=== PATIENT | female | born 2000 | race Caucasian/White ===

== ENCOUNTER 2022-07-14 07:55 | Emergency (ER) | payer OTHER, SELFPAY ==
--- NOTE | ~2022-07-14 | US_ITS ---
EXAMINATION: US OB <= 14 weeks fetus DATE: 07/14/2022 09:22 INDICATION: Pelvic pain. TECHNIQUE: Real-time transabdominal and transvaginal pelvic ultrasound was performed. COMPARISON: None. FINDINGS: TRANSABDOMINAL ULTRASOUND: The uterus measures 5.6 x 4.0 x 4.8 cm. TRANSVAGINAL ULTRASOUND: There is an intrauterine gestational sac with mean diameter of 7 mm, which c orrelates with an estimated gestational age of 5 weeks and 3 days +/- 3 days. A yolk sac is identifie d. No pole is visible. The right ovary measures 3.1 x 2.3 x 2.2 cm. The left ovary measures 2.2 x 1.5 x 2.5 cm. There is normal vascular flow in the ovaries. There is no free fluid in the pelvis. IMPRESSION: 1. Single intrauterine gestation with estimated date of delivery of 03/13/2023. Reviewed, dictated and finalized at location A.
[2022-07-14 07:58] VITALS: BP 127/87; PULSE 90; RESP 17; TEMP 36.3; O2SAT 98
[2022-07-14 08:11] VITALS: TEMP 36.6
--- NOTE | 2022-07-14 08:19 | ED.ABDPAIN ---
HPI - Abdominal Pain General Chief Complaint: Abdominal Pain Stated Complaint: abd pain, six weeks Time Seen by Provider: 07/14/22 08:19 Source: patient Mode of arrival: ambulatory Limitations: no limitations History of Present Illness HPI narrative: 22 years old white female presents with bilateral lower abdominal pain slight vaginal spotting a started last night. Patient found out that she is 2 days ago, history of palpitation and depression, does not smoke or drink or uses drugs. Patient is 2, para 0 1 Related Data Home Medications Medication Instructions Recorded Confirmed sertraline 25 mg tablet (Zoloft) mg 07/14/22 Allergies Allergy/AdvReac Type Severity Reaction Status Date / Time hydroxyzine AdvReac Anxiety Verified 07/14/22 08:13 methylphenidate AdvReac Other Verified 07/14/22 08:13 [From [employer]] Review of Systems Review of Systems: All systems reviewed & are unremarkable except as noted in HPI and below Exam Narrative: General appearance: Well-developed, well-nourished Skin: Normal color Head: Normocephalic, nontraumatic Eyes: Clear conjunctiva ENT: Oropharynx normal, ears normal, nose normal Neck: Supple, nontender Chest and respiratory: Airway patent, no respiratory distress, no accessory muscle use Heart: Regular rate/rhythm Abdomen: Soft, mild lower abdominal tenderness, no guarding or rebound. No organomegaly, quiet bowel sounds Vascular: Normal peripheral pulses, normal capillary refill. Musculoskeletal: Normal range of motion, nontender back Neurologic: Alert and oriented ?3, [employer] DEVELOPER is normal as tested, no gross motor deficit : Speculum Exam - Vagina: normal appearance of the vagina and vaginal bleeding (No vaginal bleeding) Speculum Exam - Cervix: normal appearance of the cervix and Cervical os closed Bimanual Exam- Adnexa, other: no masses and No adnexal tenderness Course Course Emergency Course: Threatened is my concern Vital Signs Vital signs: Vital Signs Temperature 36.3 C L 07/14/22 07:58 Pulse Rate 90 07/14/22 07:58 Respiratory Rate 17 07/14/22 07:58 Blood Pressure 127/87 07/14/22 07:58 Pulse Oximetry 98 07/14/22 07:58 Oxygen Delivery Room Air 07/14/22 07:58 Temperature 36.6 C 07/14/22 08:27 Pulse Rate 92 07/14/22 08:27 Respiratory Rate 18 07/14/22 08:27 Blood Pressure 115/62 07/14/22 08:27 Pulse Oximetry 100 07/14/22 08:27 Oxygen Delivery Room Air 07/14/22 07:58 MDM - Abdominal Pain Lab Data Result diagrams: 07/14/22 08:19 07/14/22 08:19 Labs: Lab Results 07/14/22 07/14/22 07/14/22 Range/Units 08:19 08:19 08:19 WBC 11.9 H (4.5-10.0) K/mm3 RBC 4.85 (4.2-5.4) M/mm3 Hgb 13.6 (12.0-15.0) g/dL Hct 40.6 (37.0-47.0) % MCV 83.7 (80-100) fl MCH 28.0 (26-34) pg MCHC 33.5 (32-36) g/dl RDW 13.2 (11.5-14.5) % Plt Count 296 (150-375) k/mm3 MPV 10.9 H (7.4-10.4) fl Immature Gran % (Auto) 0.7 H (0-0.5) % Neut % (Auto) 71.6 (45.5-73.1) % Lymph % (Auto) 18.1 L (18.3-44.2) % [place] % (Auto) 7.1 (2.6-8.5) % Eos % (Auto) 2.1 (0-4.4) % Baso % (Auto) 0.4 (0.2-1.2) % Lymph # (Auto) 2.15 (0.9-3.2) K/mm3 [place] # (Auto) 0.8 H (0.1-0.6) K/mm3 Eos # (Auto) 0.3 (0-0.3) K/mm3 Baso # (Auto) 0.1 (0.0-0.1) K/mm3 Abs Immat Gran (auto) 0.08 H (0.00-0.031) K/mm3 Absolute Neuts (auto) 8.5 H (1.3-6.7) K/mm3 Absolute Nucleated RBC 0.0 (0.0-0.012) K/mm3 Nucleated RBC % 0.0 (0.0-0.2) % Sodium 141 (137-145) mmol/L Potassium 3.8 (3.4-5.0) mmol/L Chloride 105 (98-107
[2022-07-14 08:27] VITALS: BP 115/62; PULSE 92; RESP 18; TEMP 36.6; O2SAT 100
[2022-07-14] MEDS: SODIUM CHLORIDE 0.9% IV 1,000 ML 999 ML IV CONT (08:36)
[2022-07-14] MEDS: MORPHINE SULFATE (*CRX) 4 MG/ML INJ IV PUSH (08:36)
[2022-07-14] MEDS: ONDANSETRON INJ 4 MG/2 ML VIAL IV PUSH (08:37)
[2022-07-14 08:38] LABS: Appearance Urine Clear (Clear); Bilirubin Urine Negative (Negative); Blood Urine Negative (Negative); Color Urine Yellow (Yellow); Glucose Urine UA Negative (Negative); Ketones Urine Negative (Negative); Leukocyte Esterase Ur Trace LEU/UL (Negative); Nitrate Urine Negative (Negative); Protein Urine Negative (Negative); Specific Grav Ur >= 1.030 (1.001-1.035); Urobilinogen Urine 0.2 mg/dL (<2.0); pH Urine 6.5 (5.0-9.0)
[2022-07-14 08:43] LABS: Basophils Absolute Auto 0.1 K/mm3 (0.0-0.1); Basophils Percent Auto 0.4 % (0.2-1.2); Eosinophils Absolute Auto 0.3 K/mm3 (0-0.3); Eosinophils Percent Auto 2.1 % (0-4.4); Hematocrit 40.6 % (37.0-47.0); Hemoglobin 13.6 g/dL (12.0-15.0); Immature Granulocyte Absolute 0.08 K/mm3 (0.00-0.031); Immature Granulocyte Percent A 0.7 % (0-0.5); Lymphocytes Absolute Auto 2.15 K/mm3 (0.9-3.2); Lymphocytes Percent Auto 18.1 % (18.3-44.2); Mean Corpuscular HGB Conc 33.5 g/dl (32-36); Mean Corpuscular Volume 83.7 fl (80-100); Mean Platelet Volume 10.9 fl (7.4-10.4); Monocytes Absolute Auto 0.8 K/mm3 (0.1-0.6); Monocytes Percent Auto 7.1 % (2.6-8.5); Neutrophils Absolute Auto 8.5 K/mm3 (1.3-6.7); Neutrophils Percent Auto 71.6 % (45.5-73.1); Platelet Count Result 296 k/mm3 (150-375); Red Blood Count 4.85 M/mm3 (4.2-5.4); Red Cell Distribution Width 13.2 % (11.5-14.5); White Blood Count 11.9 K/mm3 (4.5-10.0)
[2022-07-14 08:46] LABS: Mucus Urine Rare /lpf; RBC Urine 0-2 /hpf (0-2); Squamous Epithelial Cell Urine Few /hpf (Few); WBC Urine 0-3 /hpf
--- NOTE | 2022-07-14 08:54 | PC.NURSE ---
Pt to US
[2022-07-14 08:58] LABS: Alanine Aminotransferase 24 U/L (6-35); Albumin Level 4.4 g/dL (3.5-5.1); Alkaline Phosphatase 67 U/L (38-126); Anion Gap 10 mmol/L (8-16); Aspartate Amino Transferase 24 U/L (14-36); Bilirubin,Total 0.2 mg/dL (0.2-1.3); Blood Urea Nitrogen 9 mg/dL (7-17); Calcium 8.9 mg/dL (8.4-10.2); Carbon Dioxide 26 mmol/L (22-30); Chloride 105 mmol/L (98-107); Estimated CRCL calculation 135 ml/min; Estimated Glomerular Filt Rate > 60; Glucose 73 mg/dL (65-110); Lipase 58 U/L (23-300); Potassium 3.8 mmol/L (3.4-5.0); Sodium 141 mmol/L (137-145)
[2022-07-14 09:00] LABS: Add Urine Microscopic? YES
[2022-07-14 11:12] VITALS: BP 112/60; PULSE 93; RESP 18; O2SAT 100
== END 2022-07-14 11:14 | disposition home or self-care (01) ==
PROVIDERS: Emergency Provider Emergency Medicine
DX: O20.0 Threatened abortion (principal); Z3A.01 Less than 8 weeks gestation of pregnancy
CPT/HCPCS: 36415; 76801; 80053; 81001; 81025; 83690; 84702; 85025; 85461; 96361; 96374; 96375; 99284; J2270; J2405; J7030

== ENCOUNTER 2022-07-15 05:46 | Emergency (ER) | payer OTHER, SELFPAY ==
[2022-07-15 05:50] VITALS: BP 131/63; PULSE 95; RESP 17; TEMP 36.2; O2SAT 100
[2022-07-15 06:30] LABS: Appearance Urine Clear (Clear); Bilirubin Urine Negative (Negative); Blood Urine Negative (Negative); Color Urine Yellow (Yellow); Glucose Urine UA Negative (Negative); Ketones Urine Negative (Negative); Leukocyte Esterase Ur 1+ LEU/UL (Negative); Nitrate Urine Negative (Negative); Protein Urine Negative (Negative); Urobilinogen Urine 0.2 mg/dL (<2.0); pH Urine 6.5 (5.0-9.0)
[2022-07-15 06:35] LABS: Mucus Urine Rare /lpf; RBC Urine 0-2 /hpf (0-2); Squamous Epithelial Cell Urine Occasional /hpf (Few); WBC Urine 0-3 /hpf
[2022-07-15 06:37] LABS: Add Urine Microscopic? YES
--- NOTE | 2022-07-15 08:06 | ED.GENADULT ---
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 6weeks preg Time Seen by Provider: 07/15/22 06:03 History of Present Illness HPI narrative: Patient is a 22-year-old female who presents ER with vaginal discharge. Patient was evaluated in the ER yesterday for threatened AB. Ultrasound showed appropriate IUP. Patient sees Dr. Ellis at [facility]. Denies any vaginal bleeding. Still having some abdominal cramping. She noticed some gelatinous discharge from her vagina today and thought she should be evaluated. Patient did undergo transvaginal ultrasound and pelvic exam both which had lubricating jelly. Her discharge paperwork had said to return if she had abnormal discharge. Related Data Home Medications Medication Instructions Recorded Confirmed sertraline 25 mg tablet (Zoloft) mg 07/14/22 Allergies Allergy/AdvReac Type Severity Reaction Status Date / Time hydroxyzine AdvReac Anxiety Verified 07/14/22 08:13 methylphenidate AdvReac Other Verified 07/14/22 08:13 [From [employer]] Review of Systems Review of Systems: All systems reviewed & are unremarkable except as noted in HPI and below Constitutional: Constitutional: Denies chills and Denies fever(s) Gastrointestinal: Gastrointestinal: Denies abdominal pain, Denies nausea and Denies vomiting Genitourinary: Genitourinary: Denies abnormal vaginal bleeding, Denies nocturia and Reports vaginal discharge Comments: Pelvic cramping PMFSH Past Medical History Medical History (Updated 07/15/22 @ 08:11 by Odilon Connell MD) Healthy female adult Surgical History Surgical History (Updated 07/15/22 @ 08:08 by Odilon Connell MD) No history of previous surgery Social History Social History (Updated 07/15/22 @ 08:08 by Odilon Connell MD) Smoking status: Never smoker Exam Narrative: GENERAL: Well-appearing, well-nourished, and in no acute distress. HEAD: Normocephalic, atraumatic. CHEST: Clear to auscultation. No respiratory distress. HEART: Regular rate and rhythm. Normal peripheral pulses. ABDOMEN: Soft, nontender, nondistended. Pelvic: Normal external genitalia. Speculum exam with scant discharge, no bleeding, normal-appearing cervix is nontender. EXTREMITIES: Normal range of motion. No edema. SKIN: Warm, dry, no rash. NEURO: Alert and oriented x3. PSYCH: Normal mood and affect. Course Course Emergency Course: Pelvic swabs obtained. Unremarkable exam. Discharge likely related to lubricating jelly used yesterday. Will not prescribe any metronidazole at this time. Recommend follow-up with energy auditor in follow-up of vaginal cultures. Vital Signs Vital signs: Vital Signs Temperature 97.1 F L 07/15/22 05:50 Pulse Rate 95 07/15/22 05:50 Respiratory Rate 17 07/15/22 05:50 Blood Pressure 131/63 07/15/22 05:50 Pulse Oximetry 100 07/15/22 05:50 Oxygen Delivery Room Air 07/15/22 05:50 Temperature 97.1 F L 07/15/22 05:50 Pulse Rate 95 07/15/22 05:50 Respiratory Rate 17 07/15/22 05:50 Blood Pressure 131/63 07/15/22 05:50 Pulse Oximetry 100 07/15/22 05:50 Oxygen Delivery Room Air 07/15/22 05:50 Medical Decision Making Vital Signs Vital Signs: Vital Signs Temperature 97.1 F L 07/15/22 05:50 Pulse Rate 95 07/15/22 05:50 Respiratory Rate 17 07/15/22 05:50 Blood Pressure 131/63 07/15/22 05:50 Pulse Oximetry 100 07/15/22 05:50 Oxygen Delivery Room Air 07/15/22 05:50 Temperature 97.1 F L 07/15/22 05:50 Pulse Rate 95 07/15/22 05:50 Respiratory Rate 17 07/15/22 05:50 Blood Pressure 131/63 07/15/22 05:50 Pulse Oximetry 100 07/15/22 05:50 Oxygen Delivery Room Air 07/15/22 05:50 Lab Data Labs: Lab Results 07/15/22 Range/Units 06:21 Urine Color Yellow (Yellow) Urine Appearance Clear (Clear) Urine pH 6.5 (5.0-9.0) Ur Specific [place] 1.010 (1.001-1.035) Uri
[2022-07-15 08:20] VITALS: BP 126/87; PULSE 64; RESP 16; O2SAT 98
== END 2022-07-15 08:21 | disposition home or self-care (01) ==
PROVIDERS: Emergency Medicine; Emergency Provider Emergency Medicine; PCP Nurse Practitioner Family
DX: O99.891 Other specified diseases and conditions complicating pregnancy (principal); N89.8 Other specified noninflammatory disorders of vagina; Z3A.01 Less than 8 weeks gestation of pregnancy
CPT/HCPCS: 81001; 87070; 87491; 87591; 87808; 99284

== ENCOUNTER 2022-08-24 08:55 | Emergency (ER) | payer OTHER, MEDICAID, SELFPAY ==
[2022-08-24] VITALS (8 sets, daily range): BP systolic 106–115; BP diastolic 53–73; PULSE 82–100; RESP 16–20; TEMP 36.4; O2SAT 98–100
--- NOTE | ~2022-08-24 | CT_ITS ---
EXAMINATION: CT brain wo con DATE: 08/24/2022 09:54 INDICATION: Struck head 4 days ago. 11 weeks . TECHNIQUE: Computed tomography (CT) of the head was performed without intravenous contrast. The mA wa s adjusted according to patient size. Iterative reconstruction technique was employed. Exam dose: 60 5.33 mGy-cm total exam DLP. COMPARISON: None FINDINGS: No intracranial mass lesion or hemorrhage, midline shift or mass effect or cerebrovascular accident. Normal ventricular size. Normal covarrubias-white matter differentiation. No subdural or epidural hematoma is detected. No fracture or bone destruction of the cranial vault. Mastoid air cells and included paranasal sinuses are unremarkable. IMPRESSION: Negative Reviewed, dictated and finalized at [facility]. Reviewed, dictated and finalized at location A. ECTOR ALIGNING IMPRESSION: Negative
--- NOTE | 2022-08-24 09:14 | ECG_ITS ---
Measurements Intervals [place] Rate: 86 P: 27 SC: 137 QRS: 33 QRSD: 80 T: -10 QT: 380 QTc: 457 Interpretive Statements SINUS RHYTHM NONSPECIFIC ST & T-WAVE ABNORMALITY- ANTEROLAT/INF LEADS BASELINE ARTIFACT- I, II, III, AVR, AVL, AVF, V1-V6 BORDERLINE ECG NO PREVIOUS ECG AVAILABLE FOR COMPARISON Electronically Signed On 08-24-2022 9:34:35 LEATHER STRETCHER by Quang Lo D.O.
[2022-08-24 09:28] LABS: Basophils Percent Auto 0.3 % (0.2-1.2); Eosinophils Absolute Auto 0.2 K/mm3 (0-0.3); Eosinophils Percent Auto 1.1 % (0-4.4); Hematocrit 36.6 % (37.0-47.0); Hemoglobin 12.7 g/dL (12.0-15.0); Immature Granulocyte Percent A 0.7 % (0-0.5); Lymphocytes Absolute Auto 2.21 K/mm3 (0.9-3.2); Lymphocytes Percent Auto 15.7 % (18.3-44.2); Mean Corpuscular HGB Conc 34.7 g/dl (32-36); Mean Corpuscular Hemoglobin 28.4 pg (26-34); Mean Corpuscular Volume 81.9 fl (80-100); Mean Platelet Volume 10.6 fl (7.4-10.4); Monocytes Absolute Auto 0.8 K/mm3 (0.1-0.6); Monocytes Percent Auto 5.5 % (2.6-8.5); Neutrophils Absolute Auto 10.8 K/mm3 (1.3-6.7); Neutrophils Percent Auto 76.7 % (45.5-73.1); Platelet Count Result 265 k/mm3 (150-375); Red Blood Count 4.47 M/mm3 (4.2-5.4); Red Cell Distribution Width 13.2 % (11.5-14.5); White Blood Count 14.1 K/mm3 (4.5-10.0)
[2022-08-24] MEDS: SODIUM CHLORIDE 0.9% IV 1,000 ML 999 ML IV CONT (09:28)
--- NOTE | 2022-08-24 09:28 | ED.DIZZY ---
HPI - Dizziness General Chief Complaint: Dizziness Stated Complaint: dizzy, head injury 4 days ago Time Seen by Provider: 08/24/22 09:05 Source: RN notes reviewed History of Present Illness HPI Narrative: Patient presents emergency department from home for dizziness. Patient states she been having intermittent dizziness for the past 4 days. Patient states that symptoms began after she struck her head on a pallet at work she states she had no loss of consciousness at that time she denies having any headache at this time she states that the dizziness feels like the room spinning sensation she denies any fevers or chills numbness or weakness of extremities vision changes chest pain shortness of breath vomiting or any other symptoms. Patient states she is approximately 11 weeks she is followed by Dr. Ellis she has had an ultrasound showing intrauterine . She denies any vaginal bleeding or discharge Related Data Home Medications Medication Instructions Recorded Confirmed sertraline 25 mg tablet (Zoloft) mg 07/14/22 Allergies Allergy/AdvReac Type Severity Reaction Status Date / Time hydroxyzine AdvReac Anxiety Verified 07/14/22 08:13 methylphenidate AdvReac Other Verified 07/14/22 08:13 [From [employer]] Review of Systems Review of Systems: Gen.: Denies fevers or chills Eyes: Denies eye pain or visual change ENT: Denies congestion Respiratory: Denies shortness of breath or cough CV: Denies chest pain or palpitations GI: Denies abdominal pain nausea, emesis or diarrhea Musculoskeletal: Denies back pain or muscle pain Neuro: See HPI Skin: Denies rash Except as documented, all other systems reviewed and negative [facility] Past Medical History Medical History Healthy female adult Surgical History Surgical History (Updated 07/15/22 @ 08:08 by Odilon Connell MD) No history of previous surgery Social History Social History Smoking status: Never smoker Exam Narrative: APPEARANCE: No acute distress, nontoxic, resting in bed HEENT: Normocephalic, atraumatic, OMM, TMs clear bilaterally EYES: PERRL, EOMI NECK: Supple, nontender, full range of motion without pain, no meningismus RESPIRATORY: No respiratory distress, clear to auscultation bilaterally with no rhonchi wheezing or rales CARDIOVASCULAR: RRR s murmur ABDOMINAL: Soft, nontender, nondistended MUSCULOSKELETAL: Moves all extremities. No clubbing, cyanosis or edema. NEURO: A and O ?3, following commands, speech normal, no facial,muscle strength 5 out of 5 bilateral upper and lower extremities SKIN:: Warm, dry. Normal Color PSYCHIATRIC: Normal affect/mood Course Course Emergency Course: Patient states her dizziness is improved at this time Discussed with patient results of workup and diagnosis. Discussed need for follow-up with primary care, proper use of medication, and reasons to return to the emergency department. Patient understands and agrees to current treatment plan Vital Signs Vital signs: Vital Signs Pulse Rate 91 08/24/22 09:11 Respiratory Rate 20 08/24/22 09:11 Blood Pressure 112/64 08/24/22 09:11 Pulse Oximetry 100 08/24/22 09:11 Temperature 97.6 F 08/24/22 09:12 Pulse Rate 82 08/24/22 09:42 Respiratory Rate 20 08/24/22 09:28 Blood Pressure 111/69 08/24/22 09:41 Pulse Oximetry 98 08/24/22 09:28 MDM - Dizziness Lab Data Result diagrams: 08/24/22 09:19 08/24/22 09:19 Labs: Lab Results 08/24/22 08/24/22 08/24/22 Range/Units 09:19 09:19 09:35 WBC 14.1 H (4.5-10.0) K/mm3 RBC 4.47 (4.2-5.4) M/mm3 Hgb 12.7 (12.0-15.0) g/dL Hct 36.6 L (37.0-47.0) % MCV 81.9 (80-100) fl MCH 28.4 (26-34) pg MCHC 34.7 (32-36) g/dl RDW 13.2 (11.5-14.5) % Plt Count 265 (150-375) k/mm3 MPV 10.6 H (7.4-10.4
[2022-08-24 09:41] LABS: Alanine Aminotransferase 20 U/L (6-35); Albumin Level 4.3 g/dL (3.5-5.1); Alkaline Phosphatase 64 U/L (38-126); Anion Gap 9 mmol/L (8-16); Aspartate Amino Transferase 22 U/L (14-36); Bilirubin,Total 0.3 mg/dL (0.2-1.3); Blood Urea Nitrogen 9 mg/dL (7-17); Calcium 8.9 mg/dL (8.4-10.2); Carbon Dioxide 23 mmol/L (22-30); Chloride 103 mmol/L (98-107); Estimated CRCL calculation 139 ml/min; Estimated Glomerular Filt Rate > 60; Glucose 87 mg/dL (65-110); Potassium 3.6 mmol/L (3.4-5.0); Sodium 135 mmol/L (137-145)
[2022-08-24 10:09] LABS: Appearance Urine Clear (Clear); Bilirubin Urine Negative (Negative); Blood Urine Negative (Negative); Color Urine Yellow (Yellow); Glucose Urine UA Negative (Negative); Ketones Urine 1+ mg/dL (Negative); Leukocyte Esterase Ur Negative LEU/UL (Negative); Nitrate Urine Negative (Negative); Protein Urine Negative (Negative); Specific Grav Ur >= 1.030 (1.001-1.035); Urobilinogen Urine 0.2 mg/dL (<2.0); pH Urine 5.5 (5.0-9.0)
[2022-08-24 10:27] LABS: Bacteria Urine Trace /hpf; RBC Urine 0-2 /hpf (0-2); Squamous Epithelial Cell Urine Occasional /hpf (Few); WBC Urine 0-3 /hpf
[2022-08-24 11:07] LABS: Add Urine Microscopic? YES
== END 2022-08-24 12:20 | disposition home or self-care (01) ==
PROVIDERS: Emergency Provider Emergency Medicine; PCP Nurse Practitioner Family
DX: O9A.211 Injury, poisoning and certain other consequences of external causes complicating pregnancy, first trimester (principal); R42 Dizziness and giddiness; S00.93XA Contusion of unspecified part of head, initial encounter; Z3A.11 11 weeks gestation of pregnancy; W22.8XXA Striking against or struck by other objects, initial encounter
CPT/HCPCS: 36415; 70450; 80053; 81001; 85025; 93005; 96360; 99284; J7030

== ENCOUNTER 2022-10-17 11:18 | Emergency (ER) | payer OTHER, MEDICAID, SELFPAY ==
--- NOTE | ~2022-10-17 | US_ITS ---
EXAMINATION: US OB follow up DATE: 10/17/2022 12:33 INDICATION: Vaginal bleeding in . TECHNIQUE: Real-time ultrasound of the pelvis was performed. COMPARISON: Ultrasound 07/14/2022 FINDINGS: There is a single living fetus in variable presentation. The placenta is posterior, 5.6 cm in the ce rvix. heart rate is 162 beats per minute (bpm). The amniotic fluid volume is subjectively alise l. The cervical length is 3.5 cm on transvaginal images, which is normal. The following biometric data were obtained: Biparietal diameter (BPD): 4.4 cm; head circumference (HC): 16.1 cm; abdominal circumference (AC): 14 .0 cm; femur length (FL): 3.0 cm. These measurements are concordant. Estimated weight is 282 g +/- 42 g, which correlates with the 60th percentile when 03/13/23 is u sed as estimated date of delivery. As single measurements, these parameters are each equal to the following estimated gestational ages: BPD: 19 weeks 3 days. HC: 18 weeks 6 days. AC: 19 weeks 3 days. FL: 19 weeks 1 days. estimated gestational age based solely on measurements from this exam is 19 weeks 2 days +/- 1 weeks 2 days. IMPRESSION: 1. Single living fetus in variable presentation. 2. Estimated weight is 282 g +/- 42 g, which correlates with the 60th percentile when 03/13/23 is used as estimated date of delivery. This date was set by ultrasound on 07/14/2022. Reviewed, dictated and finalized at location A. BLOWER MECHANIC IMPRESSION: 1. Single living fetus in variable presentation. 2. Estimated weight is 282 g +/- 42 g, which correlates with the 60th pe rcentile when 03/13/23 is used as estimated date of delivery. This date was set by ultrasound on 07/14/2022.
[2022-10-17 11:24] VITALS: BP 123/79; PULSE 95; RESP 18; TEMP 36.6; O2SAT 98
[2022-10-17 11:27] VITALS: O2SAT 98
[2022-10-17 11:28] VITALS: BP 112/69; O2SAT 98
[2022-10-17 11:30] VITALS: O2SAT 98
--- NOTE | 2022-10-17 11:44 | ED.PREGNANCY ---
HPI - General Chief complaint: Vaginal Bleeding Stated complaint: VAG BLEED 19 WEEKS Time Seen by Provider: 10/17/22 11:27 Source: patient Mode of arrival: ambulatory Limitations: no limitations History of Present Illness HPI Narrative: This is a 22 year old , about 19 weeks that presents to the ER for vaginal bleeding today. Reports she was having bright red blood like a period earlier today. Reports the bleeding has slowed. Reports some mild left sided pelvic cramping/pain. Does report some vomiting, but that she is also recovering from the flu. Reports she is currently taking antibiotics for a UTI. Reports she has a normal ultrasound this and care, her OB is Dr. Ellis. She is scheduled for her anatomy scan next week. Denies fever, flank pain or dysuria. Related Data Home Medications Medication Instructions Recorded Confirmed sertraline 25 mg tablet (Zoloft) mg 07/14/22 nitrofurantoin 10/17/22 10/17/22 monohydrate/macrocrystals 100 mg capsule Allergies Allergy/AdvReac Type Severity Reaction Status Date / Time hydroxyzine AdvReac Anxiety Verified 10/17/22 11:22 methylphenidate AdvReac Other Verified 10/17/22 11:22 [From [employer]] Review of Systems Review of Systems: CONSTITUTIONAL: Denies fever GASTROINTESTINAL: Reports abdominal pain, nausea, vomiting GENITOURINARY: Denies dysuria or hematuria. All systems reviewed & are unremarkable except as noted in HPI and below PMFSH Past Medical History Medical History Healthy female adult Surgical History Surgical History (Updated 07/15/22 @ 08:08 by Odilon Connell MD) No history of previous surgery Social History Social History Smoking status: Never smoker Exam Narrative: GENERAL: Well-appearing, well-nourished, and in no acute distress. HEAD: Normocephalic, atraumatic. EYES: EOMI. CHEST: Clear to auscultation. No respiratory distress. No wheezes rales or rhonchi HEART: Regular rate and rhythm. No murmur heard. Normal peripheral pulses. ABDOMEN: Soft, nontender, nondistended, normal active bowel sounds. EXTREMITIES: Normal range of motion. No edema. SKIN: Warm, dry, no rash. NEURO: No focal deficits. Alert and oriented x3. PSYCH: Normal mood and affect PELVIC: Normal external genitalia. Normal appearing cervix, closed. No bleeding noted. Small amount of white cervical discharge Course Course Emergency Course: Patient and family updated on work-up. She has had no further bleeding while in the ED Consultations Consultation #1: Spoke with Dr. Hurley about patient and work-up who will follow-up in clinic Date: 10/17/22 Vital Signs Vital signs: Vital Signs Temperature 97.8 F 10/17/22 11:24 Pulse Rate 95 10/17/22 11:24 Respiratory Rate 18 10/17/22 11:24 Blood Pressure 123/79 10/17/22 11:24 Pulse Oximetry 98 10/17/22 11:24 Temperature 97.8 F 10/17/22 11:24 Pulse Rate 95 10/17/22 11:24 Respiratory Rate 18 10/17/22 11:24 Blood Pressure 112/69 10/17/22 11:28 Pulse Oximetry 98 10/17/22 11:30 MDM - OB/Uterine Contractions MDM Narrative Medical decision making narrative: Patient presents to the emergency department for vaginal bleeding noted this morning. She is afebrile and nontoxic-appearing. Her vitals are stable. I do not note any vaginal bleeding on exam. Her cervix is closed. She does report that she has had routine care. She has had a normal ultrasound and negative chlamydia, gonorrhea and trichomonas tests. CBC with mild leukocytosis to 11.9. Her hemoglobin is normal. Metabolic panel without concerning findings. UA without evidence of infection. Her blood type is B+. Obstetric ultrasound shows a single living fetus with FLORA 03-13-2023. No obvious explanation for her bleeding this morning. Patient was updated on wo
--- NOTE | 2022-10-17 12:03 | PC.NURSE ---
Patient to the ED stating she had vaginal bleeding this AM. No bleeding seen during pelvic exam. Patient complains of left flank pain and states she is being treated for a UTI currently.
--- NOTE | 2022-10-17 12:04 | PC.NURSE ---
heart tones found at around 150 BPM
[2022-10-17 12:05] LABS: Add Urine Microscopic? NO; Appearance Urine Clear (Clear); Basophils Percent Auto 0.3 % (0.2-1.2); Bilirubin Urine Negative (Negative); Blood Urine Negative (Negative); Color Urine Yellow (Yellow); Eosinophils Absolute Auto 0.2 K/mm3 (0-0.3); Eosinophils Percent Auto 1.4 % (0-4.4); Glucose Urine UA Negative (Negative); Hematocrit 35.9 % (37.0-47.0); Hemoglobin 12.3 g/dL (12.0-15.0); Immature Granulocyte Absolute 0.11 K/mm3 (0.00-0.031); Immature Granulocyte Percent A 0.9 % (0-0.5); Ketones Urine Negative (Negative); Leukocyte Esterase Ur Negative LEU/UL (Negative); Lymphocytes Absolute Auto 1.61 K/mm3 (0.9-3.2); Lymphocytes Percent Auto 13.5 % (18.3-44.2); Mean Corpuscular HGB Conc 34.3 g/dl (32-36); Mean Corpuscular Hemoglobin 29.6 pg (26-34); Mean Corpuscular Volume 86.5 fl (80-100); Mean Platelet Volume 10.3 fl (7.4-10.4); Monocytes Absolute Auto 0.9 K/mm3 (0.1-0.6); Monocytes Percent Auto 7.1 % (2.6-8.5); Neutrophils Absolute Auto 9.1 K/mm3 (1.3-6.7); Neutrophils Percent Auto 76.8 % (45.5-73.1); Nitrate Urine Negative (Negative); Platelet Count Result 293 k/mm3 (150-375); Protein Urine Negative (Negative); Red Blood Count 4.15 M/mm3 (4.2-5.4); Red Cell Distribution Width 13.6 % (11.5-14.5); White Blood Count 11.9 K/mm3 (4.5-10.0)
[2022-10-17 12:12] LABS: Bacteria Urine Trace /hpf; Mucus Urine Rare /lpf; Squamous Epithelial Cell Urine Occasional /hpf (Few); WBC Urine 0-3 /hpf
[2022-10-17 12:28] LABS: Alanine Aminotransferase 27 U/L (6-35); Albumin Level 3.8 g/dL (3.5-5.1); Alkaline Phosphatase 79 U/L (38-126); Anion Gap 6 mmol/L (8-16); Aspartate Amino Transferase 30 U/L (14-36); Bilirubin,Total 0.3 mg/dL (0.2-1.3); Blood Urea Nitrogen 4 mg/dL (7-17); Calcium 8.9 mg/dL (8.4-10.2); Carbon Dioxide 26 mmol/L (22-30); Chloride 103 mmol/L (98-107); Estimated CRCL calculation 141 ml/min; Estimated Glomerular Filt Rate > 60; Glucose 83 mg/dL (65-110); Sodium 135 mmol/L (137-145)
== END 2022-10-17 15:22 | disposition home or self-care (01) ==
PROVIDERS: Emergency Medicine; Emergency Provider Physician Assistant; PCP Nurse Practitioner Family
DX: O20.9 Hemorrhage in early pregnancy, unspecified (principal); Z3A.19 19 weeks gestation of pregnancy
CPT/HCPCS: 36415; 76816; 80053; 81003; 84702; 85025; 85461; 86850; 86900; 86901; 99284

== ENCOUNTER 2022-11-15 05:19 | Observation (INO) | payer OTHER, MEDICAID, SELFPAY ==
--- NOTE | ~2022-11-15 | US_ITS ---
EXAMINATION: US venous doppler [facility] DATE: 11/15/2022 09:18 INDICATION: Bilateral lower limb pain TECHNIQUE: Harmon scale images without and with compression and Doppler images of the bilateral lower e xtremity veins were obtained. COMPARISON: None FINDINGS: The right common femoral vein, profunda femoral vein, femoral vein, popliteal vein, peroneal trunk, p osterior tibial veins, and greater saphenous vein are patent. There is somewhat slow flow in the righ t lower extremity veins. The left common femoral vein, profunda femoral vein, femoral vein, popliteal vein, peroneal trunk, po sterior tibial veins, and greater saphenous vein are patent. IMPRESSION: 1. Patent bilateral lower extremity veins. No evidence of deep venous thrombosis. Somewhat slow flow in the right lower extremity veins. Reviewed, dictated and finalized at location L. OMS GUARD IMPRESSION: 1. Patent bilateral lower extremity veins. No evidence of deep venous thrombosi s. Somewhat slow flow in the right lower extremity veins.
[2022-11-15 05:48] VITALS: BP 124/68; PULSE 84
--- NOTE | 2022-11-15 05:50 | OBADM ---
This patient, Tory Corrales, admitted to the OB room OB Post 117 for observation. pt complains of some abdominal cramping last couple of hours here and there, but denies pain of frequent contractions. abdomen soft. pt also complains of swelling on legs and some pain on back of her legs. No edema noted, negative shay's sign. she complains soreness of calf as palpate. [place] pulse palpate equally. bilateral legs appears same size. pt states she has family hx DVT. monitoring applied. VS stable. Patient/family oriented to hospital policies and general routines including ID bracelet, bed and alarms, visiting hours, pain management, procedures, bathroom and other care routines, personal items, smoking policy, room service/diet, and visiting hours. Patient/Family are encouraged to report perceived risks to care and to ask questions if they do not understand what they are told or what they should do.
[2022-11-15 06:00] VITALS: BP 117/69; PULSE 78; TEMP 36.4
[2022-11-15 06:15] VITALS: BP 117/64; PULSE 72
[2022-11-15 06:15] LABS: Basophils Percent Auto 0.2 % (0.2-1.2); Eosinophils Absolute Auto 0.1 K/mm3 (0-0.3); Eosinophils Percent Auto 0.9 % (0-4.4); Hematocrit 33.4 % (37.0-47.0); Hemoglobin 11.4 g/dL (12.0-15.0); Immature Granulocyte Percent A 0.8 % (0-0.5); Lymphocytes Absolute Auto 1.36 K/mm3 (0.9-3.2); Lymphocytes Percent Auto 11.3 % (18.3-44.2); Mean Corpuscular HGB Conc 34.1 g/dl (32-36); Mean Corpuscular Hemoglobin 29.7 pg (26-34); Monocytes Absolute Auto 0.7 K/mm3 (0.1-0.6); Monocytes Percent Auto 5.9 % (2.6-8.5); Neutrophils Absolute Auto 9.7 K/mm3 (1.3-6.7); Neutrophils Percent Auto 80.9 % (45.5-73.1); Platelet Count Result 251 k/mm3 (150-375); Red Blood Count 3.84 M/mm3 (4.2-5.4); Red Cell Distribution Width 13.4 % (11.5-14.5)
[2022-11-15 06:16] LABS: Appearance Urine Clear (Clear); Bilirubin Urine Negative (Negative); Blood Urine Negative (Negative); Color Urine Yellow (Yellow); Glucose Urine UA Negative (Negative); Ketones Urine Negative (Negative); Leukocyte Esterase Ur Trace LEU/UL (Negative); Nitrate Urine Negative (Negative); Protein Urine Trace mg/dL (Negative); Urobilinogen Urine 0.2 mg/dL (<2.0)
[2022-11-15 06:26] LABS: Add Urine Microscopic? YES; Amorphous Sediment Urine Few; Bacteria Urine Trace /hpf; Mucus Urine Rare /lpf; Squamous Epithelial Cell Urine Moderate /hpf (Few)
[2022-11-15 06:30] VITALS: BP 119/73; PULSE 83; TEMP 36.4; BMI 37.8
[2022-11-15 06:31] LABS: Alanine Aminotransferase 14 U/L (6-35); Albumin Level 3.6 g/dL (3.5-5.1); Alkaline Phosphatase 69 U/L (38-126); Anion Gap 4 mmol/L (8-16); Aspartate Amino Transferase 15 U/L (14-36); Bilirubin,Total 0.3 mg/dL (0.2-1.3); Blood Urea Nitrogen 6 mg/dL (7-17); Calcium 8.6 mg/dL (8.4-10.2); Carbon Dioxide 24 mmol/L (22-30); Chloride 105 mmol/L (98-107); Estimated Glomerular Filt Rate > 60; Glucose 93 mg/dL (65-110); Potassium 3.7 mmol/L (3.4-5.0); Sodium 133 mmol/L (137-145)
[2022-11-15 06:48] LABS: Creatinine Urine 113.8 mg/dL; Total Protein Urine Random 17 mg/dL; Ur Ttl Prot Creatinine Ratio 0.15 mg/mg (0-0.20)
[2022-11-15 07:00] VITALS: BP 117/72; PULSE 77
--- NOTE | 2022-11-15 07:40 | PC.NURSE ---
Dr. Hurley informed of pt's c/o abdominal cramping and pain behind both knees radiating down to calves bilaterally. Pt states her legs swell at times; but no swelling or redness noted at present. Pt rating leg pain a 7 out of 10.
[2022-11-15 07:58] VITALS: BP 118/57; PULSE 77
--- NOTE | 2022-11-15 09:51 | PC.NURSE ---
Dr. Hurley informed of Venous doppler U/S report and that cramping has resolved. Orders for discharge received.
--- NOTE | 2022-12-05 11:58 | PM.OBTRLD ---
OB - Triage/Final Diagnosis Visit Information Comments/Additional reasons for admission: I have assessed the risk for this patient, Tory Corrales, and determined that she would benefit from observation care. Evaluation Laboratory results: Laboratory Tests 11/15/22 11/15/22 11/15/22 05:59 05:59 05:59 WBC 12.0 H RBC 3.84 L Hgb 11.4 L Hct 33.4 L MCV 87.0 MCH 29.7 MCHC 34.1 RDW 13.4 Plt Count 251 MPV 11.0 H Immature Gran % (Auto) 0.8 H Neut % (Auto) 80.9 H Lymph % (Auto) 11.3 L [place] % (Auto) 5.9 Eos % (Auto) 0.9 Baso % (Auto) 0.2 Lymph # (Auto) 1.36 [place] # (Auto) 0.7 H Eos # (Auto) 0.1 Baso # (Auto) 0.0 Abs Immat Gran (auto) 0.10 H Absolute Neuts (auto) 9.7 H Absolute Nucleated RBC 0.0 Nucleated RBC % 0.0 Sodium Potassium Chloride Carbon Dioxide Anion Gap BUN Creatinine Estim Creat Clear Calc Estimated GFR Glucose Uric Acid Calcium Total Bilirubin AST ALT Alkaline Phosphatase Total Protein Albumin Urine Color Yellow Urine Appearance Clear Urine pH 7.0 Ur Specific [place] 1.020 Urine Protein Trace Urine Glucose (UA) Negative Urine Ketones Negative Ur Blood (Man) Negative Urine Nitrate Negative Urine Bilirubin Negative Urine Urobilinogen 0.2 Leukocyte Esterase Rfl Trace H Urine RBC 3-5 H Urine WBC 4-6 H Ur Squamous Epith Cells Moderate H Amorphous Sediment Few H Urine Bacteria Trace Urine Mucus Rare U Random Total Protein 17 Urine Creatinine 113.8 Protein/Creat Ratio 2 0.15 11/15/22 05:59 WBC RBC Hgb Hct MCV MCH MCHC RDW Plt Count MPV Immature Gran % (Auto) Neut % (Auto) Lymph % (Auto) [place] % (Auto) Eos % (Auto) Baso % (Auto) Lymph # (Auto) [place] # (Auto) Eos # (Auto) Baso # (Auto) Abs Immat Gran (auto) Absolute Neuts (auto) Absolute Nucleated RBC Nucleated RBC % Sodium 133 L Potassium 3.7 Chloride 105 Carbon Dioxide 24 Anion Gap 4 L BUN 6 L Creatinine 0.50 L Estim Creat Clear Calc Not Reportable Estimated GFR > 60 Glucose 93 Uric Acid 3.0 Calcium 8.6 Total Bilirubin 0.3 AST 15 ALT 14 Alkaline Phosphatase 69 Total Protein 7.0 Albumin 3.6 Urine Color Urine Appearance Urine pH Ur Specific [place] Urine Protein Urine Glucose (UA) Urine Ketones Ur Blood (Man) Urine Nitrate Urine Bilirubin Urine Urobilinogen Leukocyte Esterase Rfl Urine RBC Urine WBC Ur Squamous Epith Cells Amorphous Sediment Urine Bacteria Urine Mucus U Random Total Protein Urine Creatinine Protein/Creat Ratio 2 Final Diagnosis (1) Uterine cramping: Code(s): N94.89 - Other specified conditions associated with female genital organs and menstrual cycle Status: Acute
== END 2022-11-15 10:06 | disposition home or self-care (01) ==
PROVIDERS: Admitting Provider Obstetrics & Gynecology; PCP Nurse Practitioner Family; Visit Provider Obstetrics & Gynecology
DX: O99.891 Other specified diseases and conditions complicating pregnancy (principal); N94.89 Other specified conditions associated with female genital organs and menstrual cycle; O26.892 Other specified pregnancy related conditions, second trimester; M79.662 Pain in left lower leg; M79.661 Pain in right lower leg; Z3A.23 23 weeks gestation of pregnancy
CPT/HCPCS: 36415; 80053; 81001; 82570; 84156; 84550; 85025; 93970; G0378; G0379

== ENCOUNTER 2022-12-28 11:17 | Outpatient (RCR) | payer OTHER, MEDICAID, SELFPAY ==
[2022-11-09 10:30] VITALS: BP 111/67; PULSE 73
[2022-12-28 11:54] VITALS: BP 119/75; PULSE 117
== END 2023-02-07 23:59 | disposition home or self-care (01) ==
LOC: ANHOBOP 11:17
PROVIDERS: PCP Nurse Practitioner Family; Visit Provider Obstetrics & Gynecology
DX: O36.8120 Decreased fetal movements, second trimester, not applicable or unspecified (principal); Z3A.22 22 weeks gestation of pregnancy; O36.8130 Decreased fetal movements, third trimester, not applicable or unspecified; Z3A.29 29 weeks gestation of pregnancy
CPT/HCPCS: 59025

== ENCOUNTER 2023-01-09 10:03 | Outpatient (CLI) | payer OTHER, MEDICAID, SELFPAY ==
[2023-01-09 10:24] VITALS: BP 126/70; PULSE 96
[2023-01-09 10:30] VITALS: BP 128/62; PULSE 85; RESP 18; TEMP 36.6
[2023-01-09 11:48] VITALS: BP 126/70; PULSE 104
== END 2023-01-09 11:48 | disposition home or self-care (01) ==
LOC: ANHOBOP 10:07 → ANHOBPP 10:08
PROVIDERS: PCP Nurse Practitioner Family; Visit Provider Obstetrics & Gynecology
DX: O42.90 Premature rupture of membranes, unspecified as to length of time between rupture and onset of labor, unspecified weeks of gestation (principal); Z3A.00 Weeks of gestation of pregnancy not specified
CPT/HCPCS: 59025; 84112; 99199

== ENCOUNTER 2023-01-09 19:26 | Emergency (ER) | payer OTHER, MEDICAID, SELFPAY ==
--- NOTE | ~2023-01-09 | XR_ITS ---
EXAMINATION: XR wrist LT min 3V DATE: 01/09/2023 19:55 INDICATION: Left wrist pain TECHNIQUE: Posteroanterior, ulnar deviation, oblique, and lateral views of the left wrist were obtain ed. COMPARISON: None available FINDINGS: No fracture, dislocation, or subluxation. The bones, soft tissues, and joint spaces are nor mal. IMPRESSION: 1. No acute osseous abnormality. Reviewed, dictated and finalized at location F.
--- NOTE | 2023-01-09 19:29 | ED.URI ---
HPI - URI/Sore Throat General Chief Complaint: Upper Respiratory Infection Stated Complaint: Lt Wrist Pain,Sore Throat,Congestion Time Seen by Provider: 01/09/23 20:06 Source: patient and RN notes reviewed Mode of arrival: ambulatory Limitations: no limitations History of Present Illness HPI Narrative: 22-year-old female who is in the 2nd trimester presents with multiple concerns. She reports left wrist pain for 1 week without obvious injury. She reports pain worsens when she moves her fingers. And a separate complaint she reports runny nose, stuffy nose, mild sore throat that started 3 days ago. 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 Denies chills, sweats, or fever. EYES: Denies visual changes, redness, or discharge. ENT: Reports rhinorrhea, congestion, sore throat. Denies sinus pain, otalgia CARDIOVASCULAR: Denies chest pain, palpitations, or edema. RESPIRATORY: Reports cough. Denies dyspnea. GASTROINTESTINAL: Denies abdominal pain, nausea, vomiting, diarrhea SKIN: Denies rash or itching. MUSCULOSKELETAL: Denies myalgia. Reports left wrist pain, denies swelling, bruising, redness, warmth, open skin NEUROLOGIC: Denies headache. All systems reviewed & are unremarkable except as noted in HPI and below PMFSH Past Medical History Medical History Healthy female adult Surgical History Surgical History (Updated 07/15/22 @ 08:08 by Odilon Connell MD) No history of previous surgery Social History Social History Smoking status: Never smoker Comments At time of signature, agree with nursing past medical, surgical, social and family history. There is no relevant family history pertinent to the presenting complaint Exam Narrative: GENERAL: Well-appearing, well-nourished, and in no acute distress. HEAD: Normocephalic EYES: PERRLA, conjunctivae clear ENT: Nares clear, turbinates edematous and erythematous, clear discharge. Mucous membranes moist. TM pearly covarrubias with dull light reflex bilaterally; no tragal tenderness. Oropharynx not erythematous without lesions. Tonsils not enlarged and without exudate, no drooling, no hoarseness, no trismus, uvula midline. NECK: Supple. No lymphadenopathy CHEST: Clear to auscultation, breath sounds equal. No wheezing, rhonchi, rales, or stridor. No respiratory distress, speaks in full sentences. HEART: Regular rate and rhythm. No murmur heard. EXTREMITIES: Left wrist has normal strength and sensation, normal range of motion. No edema or ecchymosis. 5/5 strength with wrist ended flexion and extension. Normal sensation with sensitivity to light touch and pain. No point tenderness. No open wounds, no skin tenting, no devitalized tissue or atrophy, no trophic changes, no obvious deformity, alignment normal, nearby joints and structures intact. Distal pulses palpable and equal bilaterally, skin warm, dry, pink. Capillary refill less than 3 seconds. SKIN: Warm, dry, no rash. NEURO: Alert and oriented x3. PSYCH: Normal mood and affect Course Course Emergency Course: Patient is aware of diagnosis, understands and agrees to treatment plan. Anticipatory guidance given. Patient agrees to follow-up as directed and is aware of reasons to seek care at the emergency department. Portions of this record may have been created with voice recognition software Level of Care: Expr
[2023-01-09 19:59] VITALS: BP 124/76; PULSE 111; RESP 18; TEMP 36.4; O2SAT 98
[2023-01-09 20:01] VITALS: BP 124/76; PULSE 111; RESP 18; TEMP 36.4; O2SAT 98
== END 2023-01-09 20:21 | disposition home or self-care (01) ==
PROVIDERS: Emergency Provider Nurse Practitioner; PCP Nurse Practitioner Family
DX: O99.512 Diseases of the respiratory system complicating pregnancy, second trimester (principal); Z3A.00 Weeks of gestation of pregnancy not specified; J06.9 Acute upper respiratory infection, unspecified; O99.891 Other specified diseases and conditions complicating pregnancy; M77.8 Other enthesopathies, not elsewhere classified
CPT/HCPCS: 73110; 87081; 87880; 99213; G0463

== ENCOUNTER 2023-01-12 20:36 | Emergency (ER) | payer OTHER, MEDICAID, SELFPAY ==
[2023-01-12 20:43] VITALS: BP 136/78; PULSE 109; RESP 18; TEMP 36.4; O2SAT 98
--- NOTE | 2023-01-12 21:15 | PC.NURSE ---
Upon patient's arrival to the ER and being made aware that patient is 32 weeks OB was contacted. Patient's complaints were communicated and this RN was instructed by OB RN to register patient in ER and evaluate and OB would do their part if necessary. ED charge made aware and patient triaged.
--- NOTE | 2023-01-12 22:00 | ED.GENADULT ---
HPI - General Adult General Chief complaint: Abdominal Pain Stated complaint: R sided abdominal pain - 32 weeks - UTI Time Seen by Provider: 01/12/23 21:33 History of Present Illness HPI narrative: 22-year-old female presented the emergency department for evaluation of right-sided flank pain. Patient states yesterday she was diagnosed with a urinary tract infection and with influenza A. Patient is currently 32 weeks and follows up with Dr. Ellis. Patient denies having any abdominal contractions. Patient states that she has not been having any pain with urination patient denies any vaginal bleeding or vaginal discharge. Related Data Home Medications Medication Instructions Recorded Confirmed sertraline 50 mg tablet 50 mg PO DAILY 11/15/22 01/09/23 Allergies Allergy/AdvReac Type Severity Reaction Status Date / Time hydroxyzine AdvReac Intermediate Anxiety Verified 01/12/23 20:37 methylphenidate AdvReac Unknown Other Verified 01/12/23 20:37 [From [employer]out] Review of Systems Review of Systems: All systems reviewed & are unremarkable except as noted in HPI and below PMFSH Past Medical History Medical History Healthy female adult Surgical History Surgical History (Updated 07/15/22 @ 08:08 by Odilon Connell MD) No history of previous surgery Social History Social History Smoking status: Never smoker Exam Narrative: APPEARANCE: Well appearing, no pain, no distress, well-nourished. HEAD: normocephalic, atraumatic. EYES: PERRLA/EOMI, conjunctivae clear. NOSE: Normal no drainage NECK: Supple. No adenopathy, no masses. RESPIRATORY: Airway patent, respirations nonlabored. Clear to auscultation bilaterally, no rales, rhonchi, wheezing. CARDIOVASCULAR: Regular rate and rhythm without murmurs rubs or gallops. ABDOMINAL: Soft, nontender, nondistended, normal bowel sounds MUSCULOSKELETAL: Moves all extremities. Strength/ROM intact, No edema, No calf tenderness. NEURO: Alert. Cranial nerves II through XII intact. Grossly intact SKIN: Warm, dry. Normal Color Course Course Emergency Course: 22-year-old female presented the emergency department for evaluation of right-sided flank pain with concurrent . OB was called to do a toco monitor on the patient. She is being treated with IV fluids. Baseline labs including a UA are being ordered to evaluate for pyelonephritis. Patient is currently on antibiotics 12:08 AM patient is afebrile. Patient's heart rate improved with rehydration. Patient states she is having no abdominal pain at this time. Patient does have a leukocytosis of 14.7 but this is normal for . Patient's CMP is within normal limits. Patient's UA shows no evidence of urinary tract infection. Patient is currently taking Keflex for her UTI and is taking Tamiflu for her recent influenza diagnosis. Patient was encouraged to have close follow-up with [facility]. Patient did have a normal toco monitor in the ED with no evidence of contraction and baby's heart rate is within normal limits. Patient and family were comfortable with the plan for discharge and follow-up. All questions and concerns were addressed. Vital Signs Vital signs: Vital Signs Temperature 97.5 F L 01/12/23 20:43 Pulse Rate 109 H 01/12/23 20:43 Respiratory Rate 18 01/12/23 20:43 Blood Pressure 136/78 01/12/23 20:43 Pulse Oximetry 98 01/12/23 20:43 Oxygen Delivery Room Air 01/12/23 20:43 Temperature 97.5 F L 01/12/23 20:43 Pulse Rate 82 01/13/23 00:26 Respiratory Rate 16 01/13/23 00:26 Blood Pressure 108/74 01/13/23 00:26 Pulse Oximetry 100 01/13/23 00:26 Oxygen Delivery Room Air 01/12/23 20:43 Medical Decision Making Vital Signs Vital Signs: Vital Signs Temperature 97.5 F L 01/12/23 20:43 Pulse Rate 109 H 01/12/23 20:43 Respiratory Ra
[2023-01-12 22:10] LABS: Basophils Percent Auto 0.3 % (0.2-1.2); Eosinophils Absolute Auto 0.2 K/mm3 (0-0.3); Eosinophils Percent Auto 1.3 % (0-4.4); Hematocrit 33.5 % (37.0-47.0); Hemoglobin 10.9 g/dL (12.0-15.0); Immature Granulocyte Absolute 0.27 K/mm3 (0.00-0.031); Immature Granulocyte Percent A 1.8 % (0-0.5); Lymphocytes Absolute Auto 1.75 K/mm3 (0.9-3.2); Lymphocytes Percent Auto 11.9 % (18.3-44.2); Mean Corpuscular HGB Conc 32.5 g/dl (32-36); Mean Corpuscular Hemoglobin 27.1 pg (26-34); Mean Corpuscular Volume 83.3 fl (80-100); Mean Platelet Volume 10.2 fl (7.4-10.4); Monocytes Percent Auto 6.9 % (2.6-8.5); Neutrophils Absolute Auto 11.5 K/mm3 (1.3-6.7); Neutrophils Percent Auto 77.8 % (45.5-73.1); Platelet Count Result 252 k/mm3 (150-375); Red Blood Count 4.02 M/mm3 (4.2-5.4); Red Cell Distribution Width 13.5 % (11.5-14.5); White Blood Count 14.7 K/mm3 (4.5-10.0)
[2023-01-12 22:25] LABS: Alanine Aminotransferase 16 U/L (6-35); Albumin Level 3.9 g/dL (3.5-5.1); Alkaline Phosphatase 106 U/L (38-126); Anion Gap 5 mmol/L (8-16); Aspartate Amino Transferase 17 U/L (14-36); Bilirubin,Total 0.3 mg/dL (0.2-1.3); Blood Urea Nitrogen 6 mg/dL (7-17); Calcium 8.6 mg/dL (8.4-10.2); Carbon Dioxide 25 mmol/L (22-30); Chloride 107 mmol/L (98-107); Estimated CRCL calculation 211 ml/min; Estimated Glomerular Filt Rate > 60; Glucose 94 mg/dL (65-110); Potassium 3.8 mmol/L (3.4-5.0); Sodium 137 mmol/L (137-145)
[2023-01-12] MEDS: SODIUM CHLORIDE 0.9% IV 1,000 ML 999 ML IV CONT (22:25)
[2023-01-12 22:26] LABS: Lactic Acid Reflex 1.2 mmol/L (0.7-2.0)
[2023-01-12 22:29] VITALS: BP 118/82; PULSE 88; RESP 16; O2SAT 98
[2023-01-12 22:30] VITALS: BP 118/82; PULSE 89
[2023-01-12 23:44] LABS: Appearance Urine Clear (Clear); Bacteria Urine Rare /hpf; Bilirubin Urine Negative (Negative); Blood Urine Negative (Negative); Color Urine Yellow (Yellow); Glucose Urine UA Negative (Negative); Ketones Urine Negative (Negative); Leukocyte Esterase Ur Negative LEU/UL (Negative); Nitrate Urine Negative (Negative); Non Pathogenic Casts 0-2; Protein Urine Trace mg/dL (Negative); RBC Urine 0-2 /hpf (0-2); Specific Grav Ur 1.021 (1.001-1.035); Squamous Epithelial Cell Urine Few /hpf (Few); WBC Urine 0-5 /hpf; pH Urine 6.5 (5.0-9.0)
[2023-01-12 23:49] LABS: Add Urine Microscopic? NO
[2023-01-13 00:26] VITALS: BP 108/74; PULSE 82; RESP 16; O2SAT 100
== END 2023-01-13 00:27 | disposition home or self-care (01) ==
PROVIDERS: Emergency Provider Emergency Medicine; PCP Nurse Practitioner Family
DX: O26.893 Other specified pregnancy related conditions, third trimester (principal); R10.9 Unspecified abdominal pain; Z3A.32 32 weeks gestation of pregnancy
CPT/HCPCS: 36415; 80053; 81003; 83605; 85025; 96360; 96361; 99283; J7030

== ENCOUNTER 2023-02-13 19:04 | Observation (INO) | payer MEDICAID, SELFPAY ==
--- NOTE | 2023-02-13 19:16 | OBADM ---
This patient, Tory Corrales, admitted to the OB room OB Post 116 for observation. Patient/family oriented to hospital policies and general routines including ID bracelet, bed and alarms, visiting hours, pain management, procedures, bathroom and other care routines, personal items, smoking policy, room service/diet, and visiting hours. Patient/Family are encouraged to report perceived risks to care and to ask questions if they do not understand what they are told or what they should do.
[2023-02-13 19:24] VITALS: PULSE 99; O2SAT 100
[2023-02-13 19:25] VITALS: BP 129/76; PULSE 100
[2023-02-13] MEDS: DEXTROSE 5%/LACTATED RINGERS 1,000 ML 999 ML IV CONT (20:09)
[2023-02-13] MEDS: FAMOTIDINE 20 MG/2 ML VIAL IV PUSH (20:10)
[2023-02-13] MEDS: ONDANSETRON INJ 4 MG/2 ML VIAL IV PUSH (20:10)
[2023-02-13 20:12] LABS: Basophils Percent Auto 0.3 % (0.2-1.2); Eosinophils Absolute Auto 0.1 K/mm3 (0-0.3); Eosinophils Percent Auto 0.8 % (0-4.4); Hematocrit 28.1 % (37.0-47.0); Immature Granulocyte Absolute 0.11 K/mm3 (0.00-0.031); Lymphocytes Percent Auto 16.6 % (18.3-44.2); Mean Corpuscular Hemoglobin 25.5 pg (26-34); Mean Corpuscular Volume 79.6 fl (80-100); Mean Platelet Volume 10.8 fl (7.4-10.4); Monocytes Absolute Auto 1.1 K/mm3 (0.1-0.6); Monocytes Percent Auto 9.4 % (2.6-8.5); Neutrophils Absolute Auto 8.2 K/mm3 (1.3-6.7); Neutrophils Percent Auto 71.9 % (45.5-73.1); Platelet Count Result 248 k/mm3 (150-375); Red Blood Count 3.53 M/mm3 (4.2-5.4); Red Cell Distribution Width 14.6 % (11.5-14.5); White Blood Count 11.4 K/mm3 (4.5-10.0)
[2023-02-13 20:16] LABS: Appearance Urine Cloudy (Clear); Bacteria Urine Rare /hpf; Bilirubin Urine Negative (Negative); Blood Urine Negative (Negative); Color Urine Yellow (Yellow); Glucose Urine UA Negative (Negative); Ketones Urine Trace mg/dL (Negative); Leukocyte Esterase Ur Trace LEU/UL (NEGATIVE); Nitrate Urine Negative (Negative); Non Pathogenic Casts 0-2; Protein Urine Negative (Negative); RBC Urine 0-2 /hpf (0-2); Specific Grav Ur 1.012 (1.001-1.035); Squamous Epithelial Cell Urine Few /hpf (Few); WBC Urine 0-5 /hpf (0-3)
[2023-02-13 20:21] LABS: Add Urine Microscopic? YES
[2023-02-13 20:23] LABS: Alanine Aminotransferase 16 U/L (6-35); Albumin Level 3.5 g/dL (3.5-5.1); Alkaline Phosphatase 126 U/L (38-126); Anion Gap 8 mmol/L (8-16); Aspartate Amino Transferase 16 U/L (14-36); Bilirubin,Total 0.5 mg/dL (0.2-1.3); Blood Urea Nitrogen 2 mg/dL (7-17); Calcium 8.2 mg/dL (8.4-10.2); Carbon Dioxide 22 mmol/L (22-30); Chloride 109 mmol/L (98-107); Estimated Glomerular Filt Rate > 60; Glucose 85 mg/dL (65-110); Potassium 3.3 mmol/L (3.4-5.0); Sodium 139 mmol/L (137-145)
[2023-02-13] MEDS: POTASSIUM CHLORIDE 20 MEQ TABLET PO (21:05)
--- NOTE | 2023-02-14 19:10 | PM.OBTRLD ---
OB - Triage/Final Diagnosis Visit Information Date of evaluation: 02/13/23 Reason for evaluation: other (vomiting) Comments/Additional reasons for admission: I have assessed the risk for this patient, Tory Corrales, and determined that she would benefit from observation care. Evaluation Laboratory results: Laboratory Tests 02/13/23 20:05 WBC 11.4 H RBC 3.53 L Hgb 9.0 L Hct 28.1 L MCV 79.6 L MCH 25.5 L MCHC 32.0 RDW 14.6 H Plt Count 248 MPV 10.8 H Immature Gran % (Auto) 1.0 H Neut % (Auto) 71.9 Lymph % (Auto) 16.6 L [place] % (Auto) 9.4 H Eos % (Auto) 0.8 Baso % (Auto) 0.3 Lymph # (Auto) 1.90 [place] # (Auto) 1.1 H Eos # (Auto) 0.1 Baso # (Auto) 0.0 Abs Immat Gran (auto) 0.11 H Absolute Neuts (auto) 8.2 H Absolute Nucleated RBC 0.0 Nucleated RBC % 0.0 Sodium 139 Potassium 3.3 L Chloride 109 H Carbon Dioxide 22 Anion Gap 8 BUN 2 L Creatinine 0.50 L Estim Creat Clear Calc Not Reportable Estimated GFR > 60 Glucose 85 Calcium 8.2 L Total Bilirubin 0.5 AST 16 ALT 16 Alkaline Phosphatase 126 Total Protein 7.0 Albumin 3.5 Urine Color Yellow Urine Appearance Cloudy H Urine pH 6.0 Ur Specific [place] 1.012 Urine Protein Negative Urine Glucose (UA) Negative Urine Ketones Trace H Ur Blood (Man) Negative Urine Nitrate Negative Urine Bilirubin Negative Urine Urobilinogen 1.0 Ur Leukocyte Esterase Trace H Urine RBC 0-2 Urine WBC 0-5 Ur Squamous Epith Cells Few Urine Bacteria Rare Urine Casts 0-2 Vital signs: Vital Signs - 24 hr 02/13/23 19:24 02/13/23 19:25 Pulse Rate 100 Blood Pressure 129/76 Pulse Oximetry 100
== END 2023-02-13 21:42 | disposition home or self-care (01) ==
PROVIDERS: Advanced Practice Midwife; Admitting Provider Obstetrics & Gynecology; PCP Nurse Practitioner Family; Visit Provider Obstetrics & Gynecology
DX: O21.2 Late vomiting of pregnancy (principal); O36.8130 Decreased fetal movements, third trimester, not applicable or unspecified; O99.613 Diseases of the digestive system complicating pregnancy, third trimester; K92.89 Other specified diseases of the digestive system; Z3A.36 36 weeks gestation of pregnancy
CPT/HCPCS: 36415; 80053; 81001; 85025; 87086; 96374; 96375; A9270; G0378; G0379; J2405; J7121

== ENCOUNTER 2023-02-25 22:37 | Observation (INO) | payer MEDICAID, SELFPAY ==
[2023-02-25 22:57] VITALS: BP 132/83; PULSE 97
[2023-02-25 23:00] VITALS: BP 123/80; PULSE 115
[2023-02-25 23:15] VITALS: BP 125/80; PULSE 91
[2023-02-25 23:27] VITALS: BP 125/80; PULSE 91; RESP 18; TEMP 36.3
[2023-02-25 23:49] VITALS: BP 125/80; PULSE 91
--- NOTE | 2023-03-24 18:20 | PM.OBTRLD ---
OB - Triage/Final Diagnosis Visit Information Comments/Additional reasons for admission: I have assessed the risk for this patient, Tory Corrales, and determined that she would benefit from observation care. Final Diagnosis (1) Nausea/vomiting in : Code(s): O21.9 - Vomiting of , unspecified Status: Acute
== END 2023-02-26 00:12 | disposition home or self-care (01) ==
PROVIDERS: Admitting Provider Obstetrics & Gynecology; PCP Nurse Practitioner Family; Visit Provider Obstetrics & Gynecology
DX: O21.2 Late vomiting of pregnancy (principal); O36.8130 Decreased fetal movements, third trimester, not applicable or unspecified; Z3A.37 37 weeks gestation of pregnancy
CPT/HCPCS: 59025; G0378; G0379

== ENCOUNTER 2023-03-05 | Observation (INO) | payer MEDICAID, SELFPAY ==
[2023-03-05 03:10] VITALS: BMI 39.7
--- NOTE | 2023-03-05 03:10 | OBADM ---
This patient, Tory Corrales, admitted to the OB room Labor/Delivery/Recovery 102 for observation. Patient/family oriented to hospital policies and general routines including ID bracelet, bed and alarms, visiting hours, pain management, procedures, bathroom and other care routines, personal items, smoking policy, room service/diet, and visiting hours. Patient/Family are encouraged to report perceived risks to care and to ask questions if they do not understand what they are told or what they should do.
--- NOTE | 2023-03-24 18:35 | PM.OBTRLD ---
OB - Triage/Final Diagnosis Visit Information Comments/Additional reasons for admission: I have assessed the risk for this patient, Tory Corrales, and determined that she would benefit from observation care. Final Diagnosis (1) Uterine cramping: Code(s): N94.89 - Other specified conditions associated with female genital organs and menstrual cycle Status: Acute
== END 2023-03-05 03:36 | disposition home or self-care (01) ==
PROVIDERS: Admitting Provider Obstetrics & Gynecology; PCP Nurse Practitioner Family; Visit Provider Obstetrics & Gynecology
DX: O26.893 Other specified pregnancy related conditions, third trimester (principal); N94.89 Other specified conditions associated with female genital organs and menstrual cycle; Z3A.38 38 weeks gestation of pregnancy
CPT/HCPCS: G0378; G0379

== ENCOUNTER 2023-03-06 00:55 | Observation (INO) | payer MEDICAID, SELFPAY ==
[2023-03-06] VITALS (11 sets, daily range): BP systolic 118–124; BP diastolic 70–78; PULSE 68–115; TEMP 36; O2SAT 100; BMI 39.9
--- NOTE | 2023-03-06 00:55 | OBADM ---
This patient, Tory Corrales, admitted to the OB room OB Post 115 for observation. Patient/family oriented to hospital policies and general routines including ID bracelet, bed and alarms, visiting hours, pain management, procedures, bathroom and other care routines, personal items, smoking policy, room service/diet, and visiting hours. Patient/Family are encouraged to report perceived risks to care and to ask questions if they do not understand what they are told or what they should do.
--- NOTE | 2023-03-06 02:00 | PC.NURSE ---
Called Dr. Ellis with pt admission status. Informed of pt complaining of nausea, vomiting and dizziness. Unable to keep anything down since 1130. Reactive tracing. Occasional contractions noted on tracing. Orders received.
[2023-03-06] MEDS: LACTATED RINGERS 1,000 ML 999 ML IV CONT (02:19)
[2023-03-06] MEDS: ONDANSETRON INJ 4 MG/2 ML VIAL IV PUSH (02:20)
[2023-03-06 02:21] LABS: Appearance Urine Clear (Clear); Bilirubin Urine Negative (Negative); Blood Urine Negative (Negative); Color Urine Yellow (Yellow); Glucose Urine UA Negative (Negative); Ketones Urine Negative (Negative); Leukocyte Esterase Ur Negative LEU/UL (NEGATIVE); Nitrate Urine Negative (Negative); Protein Urine Negative (Negative); Specific Grav Ur 1.012 (1.001-1.035); Urobilinogen Urine 0.2 mg/dL (<2.0); pH Urine 6.5 (5.0-9.0)
[2023-03-06 02:30] LABS: Add Urine Microscopic? NO
--- NOTE | 2023-03-08 07:40 | P.PNOB_ITS ---
OB - Triage/Final Diagnosis Visit Information Comments/Additional reasons for admission: I have assessed the risk for this patient, Tory oCrrales, and determined that she would benefit from observation care. Evaluation Laboratory results: Laboratory Tests 03/06/23 02:07 Urine Color Yellow Urine Appearance Clear Urine pH 6.5 Ur Specific [place] 1.012 Urine Protein Negative Urine Glucose (UA) Negative Urine Ketones Negative Ur Blood (Man) Negative Urine Nitrate Negative Urine Bilirubin Negative Urine Urobilinogen 0.2 Ur Leukocyte Esterase Negative Final Diagnosis (1) Nausea/vomiting in : Code(s): O21.9 - Vomiting of , unspecified Status: Acute
== END 2023-03-06 04:24 | disposition home or self-care (01) ==
PROVIDERS: Admitting Provider Obstetrics & Gynecology; PCP Nurse Practitioner Family; Visit Provider Obstetrics & Gynecology
DX: O21.9 Vomiting of pregnancy, unspecified (principal); O21.2 Late vomiting of pregnancy; Z3A.39 39 weeks gestation of pregnancy
CPT/HCPCS: 81003; 87086; 87088; 96374; G0378; G0379; J2405; J7120

== ENCOUNTER 2023-03-12 21:21 | Inpatient (IN) | payer MEDICAID, SELFPAY ==
[2023-03-12 22:00] VITALS: BP 127/89; PULSE 108
[2023-03-12 22:30] VITALS: BP 150/94; PULSE 94
[2023-03-12 23:00] VITALS: BP 156/99; PULSE 99
[2023-03-12 23:30] VITALS: BP 146/95; PULSE 98
[2023-03-13] VITALS (212 sets, daily range): BP systolic 33–158; BP diastolic 22–132; PULSE 40–188; TEMP 36.6–38.2; O2SAT 86–100
--- NOTE | 2023-03-13 00:55 | P.HP_ITS ---
H&P: HPI History of Present Illness Date/Time: 03/13/23 00:55 Chief Complaint: labor Narrative: Tory is a 22yo G1 at 39.4 who presented with contractions since 7pm last night, getting more regular and stronger since. Cervix changed from 1 to 2.5cm. contractions every 2-3 min. complicated by history of anorexia, obesity, circumvallate placenta, and anxiety on zoloft. Review of Systems Review of Systems: All systems reviewed & are unremarkable except as noted in HPI and below PMFSH Past Medical History Medical History Healthy female adult Surgical History Surgical History (Updated 07/15/22 @ 08:08 by Odilon Connell MD) No history of previous surgery Family History Family History (Updated 02/08/23 @ 13:37 by Dahlia Garrison RN) Mother Hypertension High cholesterol Social History Social History Smoking status: Never smoker Substance use: never Spiritual care concerns: No Meds Home Medications and Allergies Home Medications Medication Instructions Recorded Confirmed Type sertraline 50 mg tablet 50 mg PO DAILY 11/15/22 02/13/23 History ondansetron HCl 4 mg tablet 4 mg PO Q6H PRN Nausea And Vomiting 02/08/23 02/13/23 History prenat.vits,michael,yng-dehw-uyxor 1 tablet PO DAILY 02/08/23 02/13/23 History Allergies Allergy/AdvReac Type Severity Reaction Status Date / Time hydroxyzine AdvReac Intermediate Anxiety Verified 02/08/23 13:34 methylphenidate AdvReac Unknown Other Verified 02/08/23 13:34 [From [place]] Vital Signs Vital Signs - 24 hr 03/12/23 22:00 03/12/23 22:30 03/12/23 23:00 Pulse Rate 108 H 94 99 Blood Pressure 127/89 150/94 H 156/99 H 03/12/23 23:30 03/13/23 00:00 03/13/23 00:30 Pulse Rate 98 94 97 Blood Pressure 146/95 H 148/101 H 140/70 Exam Const: General: no acute distress Resp: Effort & Inspection: normal respiratory effort Auscultation: clear to auscultation bilaterally Cardio: Rate: regular rate Rhythm: regular rhythm GI: GI Palp: Yes Soft to palpation Extrem: General: normal to inspection Assessment and Plan Assessment and plan (1) Active labor at term: Status: Acute Plan cervical change with regular contractions FHT category 1 will AROM when RN able BSUS vertex GBS neg
--- NOTE | 2023-03-13 01:06 | LDADM ---
This patient, Tory Corrales, was admitted to Labor/Delivery/Recovery 105 on 03/12/23 at 21:21. Plans for labor, pain management and were discussed with patient. Patient/family oriented to hospital policies and general routines including ID bracelet, bed and alarms, visiting hours, pain management, procedures, bathroom and other care routines, personal items, smoking policy, room service/diet and guest tray routines, security routines, and visiting hours. Patient/Family are encouraged to report perceived risks to care and to ask questions if they do not understand what they are told or what they should do. See OBIX for further documentation.
[2023-03-13 01:16] LABS: Basophils Percent Auto 0.2 % (0.2-1.2); Eosinophils Absolute Auto 0.1 K/mm3 (0-0.3); Hematocrit 31.9 % (37.0-47.0); Hemoglobin 10.4 g/dL (12.0-15.0); Immature Granulocyte Absolute 0.15 K/mm3 (0.00-0.031); Lymphocytes Absolute Auto 1.86 K/mm3 (0.9-3.2); Mean Corpuscular HGB Conc 32.6 g/dl (32-36); Mean Corpuscular Hemoglobin 25.1 pg (26-34); Mean Corpuscular Volume 77.1 fl (80-100); Monocytes Percent Auto 6.8 % (2.6-8.5); Neutrophils Absolute Auto 11.1 K/mm3 (1.3-6.7); Platelet Count Result 240 k/mm3 (150-375); Red Blood Count 4.14 M/mm3 (4.2-5.4); White Blood Count 14.3 K/mm3 (4.5-10.0)
--- NOTE | 2023-03-13 02:31 | WPDANESEPPF ---
Anes - Initial Pre Proc Eval Procedure: Labor epidural Date/Time: 03/13/23 02:31 Surgeon: Kiya Ellis MD Pre Op Diagnosis: Labor Pain Pre Op Diagnosis: Contractions, Back Pain Patient Data Age: 22 Gender: F Height: Weight: Last Vital Signs Pulse 94 03/13/23 02:30 BP 141/99 H 03/13/23 02:30 O2 Del Method Room Air 03/13/23 01:05 Allergies Allergy/AdvReac Type Severity Reaction Status Date / Time hydroxyzine AdvReac Intermediate Anxiety Verified 02/08/23 13:34 methylphenidate AdvReac Unknown Other Verified 02/08/23 13:34 [From Concerta] Home Medications Medication Instructions Recorded Confirmed Type sertraline 50 mg tablet 50 mg PO DAILY 11/15/22 02/13/23 History ondansetron HCl 4 mg tablet 4 mg PO Q6H PRN Nausea And Vomiting 02/08/23 02/13/23 History prenat.vits,michael,ebg-yozf-pbgyc 1 tablet PO DAILY 02/08/23 02/13/23 History Laboratory Tests 03/13/23 01:09 WBC 14.3 H K/mm3 (4.5-10.0) RBC 4.14 L M/mm3 (4.2-5.4) Hgb 10.4 L g/dL (12.0-15.0) Hct 31.9 L % (37.0-47.0) MCV 77.1 L fl (80-100) MCH 25.1 L pg (26-34) MCHC 32.6 g/dl (32-36) RDW 15.0 H % (11.5-14.5) Plt Count 240 k/mm3 (150-375) MPV 11.0 H fl (7.4-10.4) Immature Gran % (Auto) 1.0 H % (0-0.5) Neut % (Auto) 78.0 H % (45.5-73.1) Lymph % (Auto) 13.0 L % (18.3-44.2) [place] % (Auto) 6.8 % (2.6-8.5) Eos % (Auto) 1.0 % (0-4.4) Baso % (Auto) 0.2 % (0.2-1.2) Lymph # (Auto) 1.86 K/mm3 (0.9-3.2) [place] # (Auto) 1.0 H K/mm3 (0.1-0.6) Eos # (Auto) 0.1 K/mm3 (0-0.3) Baso # (Auto) 0.0 K/mm3 (0.0-0.1) Abs Immat Gran (auto) 0.15 H K/mm3 (0.00-0.031) Absolute Neuts (auto) 11.1 H K/mm3 (1.3-6.7) Absolute Nucleated RBC 0.0 K/mm3 (0.0-0.012) Nucleated RBC % 0.0 % (0.0-0.2) RPR Pending Blood Type B Positive Antibody Screen Negative Patient hx anesthesia problems: none Family hx anesthesia problems: none Results Review: All pre-operative results and documents have been reviewed as part of the pre-operative evaluation. [facility] Past Medical History Medical History Healthy female adult Surgical History Surgical History No history of previous surgery Family History Family History Mother Hypertension High cholesterol Social History Social History Smoking status: Never smoker Substance use: never Lack of Transportation: No Lack of Food: Never True Current Housing: I Have Housing Concerned About Future Housing: No Difficulty Paying Gas/Electric Bills: No Difficulty Paying for Meds: No Currently Unemployed: No Education: High School Diploma/GED Difficulty w/ Childcare or Family Care: No Spiritual care concerns: No Anes - Eval Final PreProcedure Day of Procedure 03/13/23 02:31 Patient weight: obese Heart: regular rate and rhythm Lungs: clear to auscultation Neurological: alert and oriented ASA classification: III Anesthetic plan: proceed Anesthesia type and monitoring: regional epidural and standard monitoring Results Review: All pre-operative results and documents have been reviewed as part of the pre-operative evaluation. Informed Consent: The patient's anesthetic plan and its attendant risks and benefits were discussed with the patient/family/POA. Questions were solicited and answers provided to the satisfaction of the patient/family/POA.
[2023-03-13] MEDS: fentaNYL CITRATE INJ (*CRX) 100 MCG/2 ML VIAL 50 MCG IV PUSH (04:13)
[2023-03-13] MEDS: fentaNYL CITRATE INJ (*CRX) 100 MCG/2 ML VIAL IV PUSH (06:37)
[2023-03-13] MEDS: LACTATED RINGERS 1,000 ML 125 ML IV CONT ×4 (08:12→20:35)
[2023-03-13] MEDS: OXYTOCIN 30 UNITS/NS 500 ML 30 UNITS/500 ML BAG IV CONT (10:44)
[2023-03-13 15:56] LABS: Rapid Plasma Reagin Non-Reactive (NonReactive)
[2023-03-13] MEDS: AMPICILLIN 1 GM/NS 50 ML 1 GM/50 ML BAG IVPB (19:41)
[2023-03-13] MEDS: ACETAMINOPHEN 500 MG TABLET 1000 MG PO (21:22)
[2023-03-13] MEDS: SERTRALINE HCL 50 MG TABLET PO (21:24)
[2023-03-13] MEDS: OXYTOCIN 30 UNITS/NS 500 ML 30 UNITS/500 ML BAG 125 UNITS IV CONT (23:01)
--- NOTE | 2023-03-13 23:05 | P.PCNOB_ITS ---
OB - Delivery Note Procedure Delivery date: 03/13/23 Procedure: Vacuum assisted vaginal delivery Intrapartal Events: Ineffetive Pushing/Maternal Exhaustion Delivery augmentation: Rupture of Membranes and Pitocin Delivery monitor: External FHT and Internal Uterine Route of delivery: vacuum extraction (Kiwi) Indication for instrumentation: maternal exhaustion Laceration Description: Perineal - 3rd Degree and Vaginal Delivery repair: vicryl Quantitative Blood Loss (ml): 800 (from lacerations) Anesthesia type: Epidural Disposition: Floor Narrative: After greater than 2 hours of pushing, Tory was exhausted. vertex was at a +2 station in WILMER position. She was consented for a VAVD. The kiwi vacuum was placed and the baby was delivered over two contractions with two pulls and one pop off. The baby's anterior shoulder was delivered under the pubic symphysis without difficulty. The posterior shoulder and the rest of the baby delivered without difficulty. The was placed on the mothers chest and suctioned and stimulated. The cord was clamped and cut quickly due to meconium and poor tone. Mother and baby both stable. [place] Baby Date of : 03/13/23 Time of : 22:07 Weeks of gestation at delivery: 39 gender: Male Weight (pounds): 7 Weight (ounces): 7 presentation: vertex position: Right Occiput Anterior Placenta delivery description: Spontaneous Cord Vessel Description: 3 Vessels, Nuchal Cord and Clamped/Cut score one minute: 5 score five minutes: 8
[2023-03-14] VITALS (7 sets, daily range): BP systolic 116–147; BP diastolic 79–95; PULSE 86–119; RESP 16–18; TEMP 36.3–36.8; O2SAT 98–100; BMI 39.3
[2023-03-14] MEDS: LIDOCAINE HCL 1% LOCAL INJ 20 ML VIAL (02:35)
[2023-03-14] MEDS: BENZOCAINE 20% AER SPR (*SP) 56 GM CAN 1 SPRAY TOPICAL (03:45)
[2023-03-14] MEDS: IBUPROFEN 600 MG TABLET PO ×3 (03:59→21:25)
[2023-03-14 05:06] LABS: Hematocrit 28.1 % (37.0-47.0); Hemoglobin 8.7 g/dL (12.0-15.0)
--- NOTE | 2023-03-14 07:27 | PM.OBPNVD ---
OB - PN: Subj Subjective Date/time seen: 03/14/23 07:27 Interval history: s/p vaginal delivery day 1 pain well managed baby doing well OB - PN: Obj Data Labs 03/14/23 04:08 Labs: Laboratory Results - last 24 hr 03/13/23 03/14/23 01:09 04:08 Hgb 8.7 L Hct 28.1 L RPR Non-reactive OB - PN A/P Time Spent With Patient Time: Total time spent is greater than 50% in coordination of care (as documented) at patient's floor/unit and/or counseling patient: Review of Systems Review of Systems: All systems reviewed & are unremarkable except as noted in HPI and below Exam Const: General: cooperative, healthy appearing and comfortable Chest: Chest palpation & inspection: normal inspection of the chest Resp: Effort & Inspection: normal respiratory effort GI: Inspection: normal to inspection Skin: General skin exam: normal color Extrem: Right lower extremity: normal to inspection Left lower extremity: normal to inspection Psych: Appearance: grossly normal
--- NOTE | 2023-03-14 07:50 | WPDANLDPN2 ---
Anes-Prog Note L&D Date/Time: 03/14/23 07:50 Comfortable throughout: labor and delivery Neuraxial method: epidural Epidural/Spinal procedure site: clean & non-tender Neuro status: Neuro function grossly intact. Cardiovascular status: normal Respiratory status: normal Airway patency: baseline Mental status: baseline Post-Op hydration status: normal Vital Signs: Last Vital Signs Temp 36.6 C 03/14/23 04:30 Pulse 95 03/14/23 04:30 Resp 18 03/14/23 04:30 BP 147/95 H 03/14/23 04:30 Pulse Ox 98 03/14/23 04:30 O2 Del Method Room Air 03/14/23 02:30 Pain score (VAS): 1 I/O: Intake & Output 03/13/23 03/13/23 03/14/23 15:59 23:59 07:59 Intake Total 1000 2500 Output Total 800 Balance 1000 1700 Post-procedural complaints: none Patient feedback: Patient satisfied with anesthetic care.
[2023-03-14] MEDS: MULTIVIT/MIN/PREN/FOL AC/IRON TABLET 1 TAB PO (09:13)
[2023-03-14] MEDS: POLYSACCHARIDE IRON COMPLEX 150 MG CAPSULE PO ×2 (09:13→16:23)
[2023-03-14] MEDS: DOCUSATE SODIUM 100 MG CAPSULE PO ×2 (09:14→16:23)
[2023-03-14] MEDS: ACETAMINOPHEN 325 MG TABLET 650 MG PO ×2 (09:14→16:24)
[2023-03-14] MEDS: SERTRALINE HCL 50 MG TABLET PO (21:25)
[2023-03-15] MEDS: SIMETHICONE 80 MG TAB.CHEW PO (04:10)
--- NOTE | 2023-03-15 07:22 | P.PNOB_ITS ---
OB - PN: Subj Subjective Date/time seen: 03/15/23 07:22 Interval history: s/p vaginal delivery day 1 pain well managed baby doing well Patient comments: no complaints [place] baby status: doing well and bottle feeding well feeding status: exclusively bottle feeding Narrative: Perineum sore. Had BM. Taking colace. Anxiety has been fine since delivery. OB - PN: Obj Data Labs 03/14/23 04:08 OB - PN A/P Plan day: 2 Plan: routine care and discharge home Comments: s/p venofer continue scheduled colace for one month for 3rd degree lac continue zoloft, anxiety stable DC today Time Spent With Patient Time: Total time spent is greater than 50% in coordination of care (as documented) at patient's floor/unit and/or counseling patient: Time with patient: less than 15 minutes Exam Narrative: NAD abdomen soft, nontender, fundus firm below the umbilicus Extremities nontender, 1+ edema
--- NOTE | 2023-03-15 07:26 | PM.OBDSVD ---
DS: Admitting Diagnosis Discharge Date 03/15/23 Admitting Diagnosis labor at term DS: Discharge Diagnosis Discharge Diagnosis (1) , delivered: Code(s): O80 - Encounter for full-term uncomplicated delivery Status: Acute (2) Third degree laceration of perineum during delivery, : Code(s): O70.20 - Third degree perineal laceration during delivery, unspecified Status: Acute OB - DS: Summary Hospital Course Hospital Course: Tory was admitted in labor. She had a vacuum assisted vaginal delivery for maternal exhaustion with a third degree laceration. Her course was uncomplicated and she was discharged home in stable condition on day two. OB Procedures : Ultrasound OB Procedures Intrapartum: Vacuum extraction OB Procedures: : None Peripartum Data Delivery Method: Natural Vaginal Laceration Description: Perineal - 3rd Degree complications: none Status at Discharge Functional status at discharge: independent ambulation Time Spent with Patient Time attestation: Total time spent providing and/or coordinating discharge services: Exam Narrative: NAD abdomen soft, appropriately tender Ext non tender, 1+ edema Discharge Plan Discharge Attending physician on discharge: Kiya Ellis Discharging Clinician: Kiya Ellis Patient Disposition: Home, Self-Care Activity: pelvic rest Diet: regular Patient Instructions: Antibiotic Form Stand Alone Forms: General Discharge Information Follow-up/Referrals: Kiya Ellis MD [Physician] - 4 Weeks Discharge Medications: Continued sertraline 50 mg tablet 50 mg PO DAILY prenat.vits,michael,alr-snao-tlkku Tablet 1 tablet PO DAILY Discontinued ondansetron HCl 4 mg Tablet 4 mg PO Q6H PRN (Reason: Nausea And Vomiting) Date of admission: 03/12/23 21:21 Primary Care Provider: Hiral,Debbie Bucio Admitting Provider: Kiya Ellis Attending physician on admission: Kiya Ellis Condition: Stable
[2023-03-15] MEDS: POLYSACCHARIDE IRON COMPLEX 150 MG CAPSULE PO (07:46)
[2023-03-15] MEDS: DOCUSATE SODIUM 100 MG CAPSULE PO (07:46)
[2023-03-15] MEDS: IBUPROFEN 600 MG TABLET PO (07:46)
[2023-03-15 08:04] VITALS: BP 132/72; PULSE 81; RESP 18; TEMP 36.5
[2023-03-16 11:07] VITALS: BP 115/83; PULSE 84; RESP 16; TEMP 37; O2SAT 100
== END 2023-03-15 10:50 | disposition home or self-care (01) | DRG 542 ==
LOC: ANHLDR 03-13 14:18 → ANHOB2 03-14 02:34
PROVIDERS: Admitting Provider Obstetrics & Gynecology; PCP Nurse Practitioner Family; Visit Provider Obstetrics & Gynecology
DX: O77.0 Labor and delivery complicated by meconium in amniotic fluid (principal); O70.20 Third degree perineal laceration during delivery, unspecified; F41.9 Anxiety disorder, unspecified; O75.2 Pyrexia during labor, not elsewhere classified; O99.344 Other mental disorders complicating childbirth; O69.81X0 Labor and delivery complicated by cord around neck, without compression, not applicable or unspecified; Z3A.39 39 weeks gestation of pregnancy; Z37.0 Single live birth
CPT/HCPCS: 36415; 85014; 85018; 85025; 86592; 86850; 86900; 86901; A9270; J0290; J1756; J2590; J2795; J3010; J7120

== ENCOUNTER 2023-03-16 19:57 | Emergency (ER) | payer BC, SELFPAY ==
--- NOTE | ~2023-03-16 | CT_ITS ---
EXAMINATION: CT abdomen pelvis w con DATE: 03/16/2023 23:33 INDICATION: Mid abdominal pain, nausea TECHNIQUE: Computed tomography (CT) of the abdomen and pelvis was performed without intravenous contr ast. Automated exposure control and iterative reconstruction technique were employed. Exam dose: 115 8.79 mGy-cm total exam DLP. COMPARISON: None. FINDINGS: The lung bases are clear of infiltrate or consolidation. Heart size is within normal range. No pericardial or pleural effusion. The liver, gallbladder, bile ducts, spleen, pancreas, pancreatic duct, and adrenal glands and kidneys are unremarkable. No urinary tract calculus or hydroureteronephrosis. The urinary bladder is unremar kable. Enlarged uterus. Normal caliber of the abdominal aorta. No intraperitoneal or retroperitoneal or pelvic mass lesion or adenopathy or ascites. Normal appendix. No bowel obstruction, bowel wall thickening, pneumatosis or intraperitoneal free air . Included skeletal structures are unremarkable. IMPRESSION: Enlarged uterus Reviewed, dictated and finalized at [facility] Reviewed, dictated and finalized at [facility]. IMPRESSION: Enlarged uterus
[2023-03-16 20:00] VITALS: BP 127/76; PULSE 79; RESP 18; TEMP 36.4; O2SAT 100
[2023-03-16 20:33] VITALS: BP 139/77
[2023-03-16 20:34] VITALS: BP 129/93
[2023-03-16 20:35] VITALS: BP 118/84
[2023-03-16 20:44] LABS: Basophils Percent Auto 0.2 % (0.2-1.2); Eosinophils Absolute Auto 0.2 K/mm3 (0-0.3); Eosinophils Percent Auto 1.8 % (0-4.4); Hematocrit 23.9 % (37.0-47.0); Hemoglobin 7.4 g/dL (12.0-15.0); Immature Granulocyte Absolute 0.25 K/mm3 (0.00-0.031); Lymphocytes Absolute Auto 1.73 K/mm3 (0.9-3.2); Lymphocytes Percent Auto 13.9 % (18.3-44.2); Mean Corpuscular Hemoglobin 24.8 pg (26-34); Mean Corpuscular Volume 80.2 fl (80-100); Mean Platelet Volume 10.8 fl (7.4-10.4); Monocytes Absolute Auto 0.7 K/mm3 (0.1-0.6); Monocytes Percent Auto 5.5 % (2.6-8.5); Neutrophils Absolute Auto 9.6 K/mm3 (1.3-6.7); Neutrophils Percent Auto 76.6 % (45.5-73.1); Nucleated Red Blood Cells Perc 0.2 % (0.0-0.2); Platelet Count Result 242 k/mm3 (150-375); Red Blood Count 2.98 M/mm3 (4.2-5.4); Red Cell Distribution Width 15.7 % (11.5-14.5); White Blood Count 12.5 K/mm3 (4.5-10.0)
[2023-03-16 20:56] LABS: Alanine Aminotransferase 22 U/L (6-35); Albumin Level 2.9 g/dL (3.5-5.1); Alkaline Phosphatase 108 U/L (38-126); Anion Gap 4 mmol/L (8-16); Aspartate Amino Transferase 33 U/L (14-36); Bilirubin,Total 0.2 mg/dL (0.2-1.3); Blood Urea Nitrogen 6 mg/dL (7-17); Calcium 7.9 mg/dL (8.4-10.2); Carbon Dioxide 26 mmol/L (22-30); Chloride 108 mmol/L (98-107); Estimated CRCL calculation 146 ml/min; Estimated Glomerular Filt Rate > 60; Glucose 81 mg/dL (65-110); Lipase 36 U/L (23-300); Potassium 3.9 mmol/L (3.4-5.0); Sodium 138 mmol/L (137-145)
--- NOTE | 2023-03-16 21:32 | PC.NURSE ---
Pt is 3 days post and was discharged from this facility yesterday. She comes into the ED tonight with c/o constant lower abdominal pain, nausea, and vaginal bleeding. Pt reports she was passing large clots yesterday but none today. States she has gone through 3 large pads today. She also c/o feeling dizzy. States dizziness is constant but worse with position changes. She has fallen three times in the past two days d/t dizziness. She denies any injury r/t fall.
[2023-03-16 21:38] LABS: Appearance Urine Cloudy (Clear); Bacteria Urine None Seen /hpf; Bilirubin Urine Negative (Negative); Blood Urine 3+ (Negative); Color Urine Yellow (Yellow); Glucose Urine UA Negative (Negative); Ketones Urine Negative (Negative); Leukocyte Esterase Ur 2+ LEU/UL (Negative); Need Manual Microscopic Reviewed; Nitrate Urine Negative (Negative); Non Pathogenic Casts 0-2; Protein Urine Trace mg/dL (Negative); RBC Urine >100 /hpf (0-2); Specific Grav Ur 1.012 (1.001-1.035); Squamous Epithelial Cell Urine Few /hpf (Few); Urobilinogen Urine 0.2 mg/dL (<2.0); WBC Urine 51-100 /hpf; pH Urine 6.5 (5.0-9.0)
[2023-03-16 21:39] LABS: Add Urine Microscopic? YES
--- NOTE | 2023-03-16 22:00 | PC.NURSE ---
Pt c/o increasing pain. This RN notified Dr. Grover and requested pain medication for pt.
--- NOTE | 2023-03-16 22:50 | ED.ABDPAIN ---
HPI - Abdominal Pain General Chief Complaint: Abdominal Pain Stated Complaint: abdominal pain Time Seen by Provider: 03/16/23 22:30 Source: patient Mode of arrival: ambulatory Limitations: no limitations History of Present Illness HPI narrative: This is a 22-year-old female who presents to the ED with chief complaint of abdominal pain onset today. Patient is day 4. Reports pain is 8 out of 10 in severity. Reports the pain is across the middle of the abdomen. Reports vaginal bleeding since the delivery. She does endorse having a third-degree laceration and feels that the bleeding has been improving over the past couple of days. She only had to use 1 pad today. Denies fevers, chills, nausea, vomiting, diarrhea, problems with bowel movements, chest pain, shortness of breath, cough. Denies urinary symptoms. Related Data Home Medications Medication Instructions Recorded Confirmed sertraline 50 mg tablet 50 mg PO DAILY 11/15/22 02/13/23 prenat.vits,michael,ucm-nitm-glgpx 1 tablet PO DAILY 02/08/23 02/13/23 Allergies Allergy/AdvReac Type Severity Reaction Status Date / Time hydroxyzine AdvReac Intermediate Anxiety Verified 02/08/23 13:34 methylphenidate AdvReac Unknown Other Verified 02/08/23 13:34 [From [employer]] Review of Systems Review of Systems: CONSTITUTIONAL: Denies fever, chills, or sweats. EYES: Denies visual changes, redness, or discharge. ENT: Denies rhinorrhea, congestion, sore throat, or otalgia. CARDIOVASCULAR: Denies chest pain, palpitations, or edema. RESPIRATORY: Denies cough or dyspnea. GASTROINTESTINAL: See HPI GENITOURINARY: Denies dysuria or hematuria. SKIN: Denies rash or itching. MUSCULOSKELETAL: Denies back pain, joint pain, or myalgia. NEUROLOGIC: Denies headache, numbness, dizziness, or weakness. PSYCHIATRIC: Denies anxiety or depression. [facility] Past Medical History Medical History Healthy female adult Surgical History Surgical History No history of previous surgery Family History Family History Mother Hypertension High cholesterol Social History Social History Smoking status: Never smoker Substance use: never Lack of Transportation: No Lack of Food: Never True Current Housing: I Have Housing Concerned About Future Housing: No Difficulty Paying Gas/Electric Bills: No Difficulty Paying for Meds: No Currently Unemployed: No Education: High School Diploma/GED Difficulty w/ Childcare or Family Care: No Spiritual care concerns: No Exam Narrative: GENERAL: Well-appearing, well-nourished, and in no acute distress. HEAD: Normocephalic, atraumatic. EYES: PERRLA and EOMI. ENT: Nares clear, no rhinorrhea or epistaxis. Mucous membranes moist. Oropharynx without tonsillar hypertrophy exudate or other lesions. NECK: Supple. No adenopathy or masses. CHEST: No respiratory distress. Clear to auscultation. No wheezes rales or rhonchi HEART: Regular rate and rhythm. No murmur heard. Normal peripheral pulses. ABDOMEN: No tenderness throughout the entire abdomen. Soft, nondistended, normal active bowel sounds. No guarding or rebound. MSK: Normal range of motion. No edema. SKIN: Warm, dry, no rash. NEURO: Alert and oriented x3. No focal deficits. PSYCH: Normal mood and affect. Course Vital Signs Vital signs: Vital Signs Temperature 97.5 F L 03/16/23 20:00 Pulse Rate 79 03/16/23 20:00 Respiratory Rate 18 03/16/23 20:00 Blood Pressure 127/76 03/16/23 20:00 Pulse Oximetry 100 03/16/23 20:00 Oxygen Delivery Room Air 03/16/23 20:00 Temperature 97.9 F 03/17/23 02:19 Pulse Rate 81 03/17/23 02:19 Respiratory Rate 22 H 03/17/23 02:19 Blood Pressure 131/85 03/17/23 02:19 Pulse Oxime
[2023-03-17] MEDS: SODIUM CHLORIDE 0.9% IV 1,000 ML 999 ML IV CONT (00:18)
[2023-03-17] MEDS: MORPHINE SULFATE (*CRX) 4 MG/ML INJ IV PUSH (00:18)
[2023-03-17] MEDS: ONDANSETRON INJ 4 MG/2 ML VIAL IV PUSH (00:18)
[2023-03-17 01:07] VITALS: BP 136/88; PULSE 74; RESP 18; O2SAT 100
[2023-03-17 02:19] VITALS: BP 131/85; PULSE 81; RESP 22; TEMP 36.6; O2SAT 100
== END 2023-03-17 02:19 | disposition home or self-care (01) ==
PROVIDERS: Emergency Medicine; Emergency Provider Physician Assistant; PCP Nurse Practitioner Family
DX: O99.893 Other specified diseases and conditions complicating puerperium (principal); R10.9 Unspecified abdominal pain; O90.81 Anemia of the puerperium; D64.9 Anemia, unspecified
CPT/HCPCS: 36415; 74177; 80053; 81001; 83690; 85025; 87086; 87088; 96361; 96374; 96375; 99284; J2270; J2405; J7030; Q9967

== ENCOUNTER 2024-01-22 10:08 | Observation (INO) | payer OTHER, SELFPAY ==
[2024-01-22 10:30] VITALS: BP 113/65; PULSE 112; BMI 41.2
[2024-01-22 10:40] LABS: Appearance Urine Clear (Clear); Bacteria Urine None Seen /hpf; Bilirubin Urine Negative (Negative); Blood Urine Negative (Negative); Color Urine Yellow (Yellow); Glucose Urine UA Negative (Negative); Ketones Urine Negative (Negative); Leukocyte Esterase Ur Trace LEU/UL (Negative); Nitrate Urine Negative (Negative); Non Pathogenic Casts 0-2; Protein Urine Negative (Negative); RBC Urine 0-2 /hpf (0-2); Specific Grav Ur 1.015 (1.001-1.035); Squamous Epithelial Cell Urine Occasional /hpf (Few); Urobilinogen Urine 0.2 mg/dL (<2.0); WBC Urine 0-5 /hpf (0-3); pH Urine 7.5 (5.0-9.0)
[2024-01-22 10:44] LABS: Add Urine Microscopic? YES
[2024-01-22 10:45] VITALS: BP 122/73; PULSE 100
--- NOTE | 2024-01-22 10:58 | PC.NURSE ---
Dr Anderson notified of adm c/o. nausea, vomiting and diarrhea and UA results. Orders received.
[2024-01-22 11:00] VITALS: BP 118/74; PULSE 98
--- NOTE | 2024-01-22 11:12 | PC.NURSE ---
Dr Anderson informed of vaiable decel and ressuring fht's after variable.
[2024-01-22] MEDS: ONDANSETRON INJ 4 MG/2 ML VIAL IV PUSH (11:23)
[2024-01-22] MEDS: LOPERAMIDE HCL 2 MG CAPSULE 4 MG PO (11:23)
[2024-01-22] MEDS: LACTATED RINGERS 1,000 ML 999 ML IV CONT (11:24)
[2024-01-22 11:35] LABS: Basophils Percent Auto 0.2 % (0.2-1.2); Eosinophils Absolute Auto 0.3 K/mm3 (0-0.3); Eosinophils Percent Auto 2.5 % (0-4.4); Hematocrit 31.5 % (37.0-47.0); Hemoglobin 9.4 g/dL (12.0-15.0); Immature Granulocyte Absolute 0.16 K/mm3 (0.00-0.031); Immature Granulocyte Percent A 1.3 % (0-0.5); Lymphocytes Absolute Auto 1.13 K/mm3 (0.9-3.2); Mean Corpuscular HGB Conc 29.8 g/dl (32-36); Mean Corpuscular Hemoglobin 22.9 pg (26-34); Mean Corpuscular Volume 76.8 fl (80-100); Mean Platelet Volume 10.9 fl (7.4-10.4); Monocytes Absolute Auto 0.7 K/mm3 (0.1-0.6); Monocytes Percent Auto 5.2 % (2.6-8.5); Neutrophils Absolute Auto 10.3 K/mm3 (1.3-6.7); Neutrophils Percent Auto 81.8 % (45.5-73.1); Platelet Count Result 224 k/mm3 (150-375); Red Cell Distribution Width 15.3 % (11.5-14.5); White Blood Count 12.5 K/mm3 (4.5-10.0)
[2024-01-22 11:42] LABS: Alanine Aminotransferase 11 U/L (6-35); Albumin Level 3.5 g/dL (3.5-5.1); Alkaline Phosphatase 128 U/L (38-126); Anion Gap 6 mmol/L (4-12); Aspartate Amino Transferase 13 U/L (14-36); Bilirubin,Total 0.2 mg/dL (0.2-1.3); Blood Urea Nitrogen 4 mg/dL (7-17); Calcium 8.6 mg/dL (8.4-10.2); Carbon Dioxide 20 mmol/L (22-30); Chloride 109 mmol/L (98-107); Estimated CRCL calculation 214 ml/min; Estimated Glomerular Filt Rate > 60; Glucose 90 mg/dL (65-110); Sodium 135 mmol/L (137-145)
[2024-01-22 12:15] LABS: Hypochromasia 1+; Microcytosis 1+ (NORMAL); Platelet Estimate Adequate (Adequate); Schistocytes None Seen
--- NOTE | 2024-02-05 22:00 | P.PNOB_ITS ---
OB - Triage/Final Diagnosis Visit Information Comments/Additional reasons for admission: I have assessed the risk for this patient, Tory Corrales, and determined that she would benefit from observation care. Evaluation Laboratory results: Laboratory Tests 01/22/24 01/22/24 10:21 11:27 WBC 12.5 H RBC 4.10 L Hgb 9.4 L Hct 31.5 L MCV 76.8 L MCH 22.9 L MCHC 29.8 L RDW 15.3 H Plt Count 224 MPV 10.9 H Immature Gran % (Auto) 1.3 H Neut % (Auto) 81.8 H Lymph % (Auto) 9.0 L [place] % (Auto) 5.2 Eos % (Auto) 2.5 Baso % (Auto) 0.2 Lymph # (Auto) 1.13 [place] # (Auto) 0.7 H Eos # (Auto) 0.3 Baso # (Auto) 0.0 Abs Immat Gran (auto) 0.16 H Absolute Neuts (auto) 10.3 H Absolute Nucleated RBC 0.000 Nucleated RBC % 0.0 Platelet Estimate Adequate Hypochromasia 1+ Microcytosis 1+ Schistocytes None seen Sodium 135 L Potassium 4.0 Chloride 109 H Carbon Dioxide 20 L Anion Gap 6 BUN 4 L Creatinine 0.40 L Estim Creat Clear Calc 214 Estimated GFR > 60 Glucose 90 Calcium 8.6 Total Bilirubin 0.2 AST 13 L ALT 11 Alkaline Phosphatase 128 H Total Protein 7.0 Albumin 3.5 Urine Color Yellow Urine Appearance Clear Urine pH 7.5 Ur Specific [place] 1.015 Urine Protein Negative Urine Glucose (UA) Negative Urine Ketones Negative Ur Blood (Man) Negative Urine Nitrate Negative Urine Bilirubin Negative Urine Urobilinogen 0.2 Leukocyte Esterase Rfl Trace H Urine RBC 0-2 Urine WBC 0-5 Ur Squamous Epith Cells Occasional Urine Bacteria None seen Urine Casts 0-2 Final Diagnosis (1) Nausea/vomiting in : Code(s): O21.9 - Vomiting of , unspecified Status: Acute (2) Diarrhea: Code(s): R19.7 - Diarrhea, unspecified Status: Acute
== END 2024-01-22 12:51 | disposition home or self-care (01) ==
PROVIDERS: Admitting Provider Obstetrics & Gynecology; PCP Nurse Practitioner Family; Visit Provider Obstetrics & Gynecology
DX: O21.2 Late vomiting of pregnancy (principal); O26.893 Other specified pregnancy related conditions, third trimester; R19.7 Diarrhea, unspecified; Z3A.33 33 weeks gestation of pregnancy
CPT/HCPCS: 36415; 80053; 81001; 85025; 96374; 96375; A9270; G0378; G0379; J2405; J7120

== ENCOUNTER 2024-01-28 20:23 | Outpatient (CLI) | payer OTHER, SELFPAY | END 2024-01-28 21:07 | LOC: ANHOBOP 20:59 | PROVIDERS: PCP Nurse Practitioner Family; Visit Provider Obstetrics & Gynecology | DX: O42.90 Premature rupture of membranes, unspecified as to length of time between rupture and onset of labor, unspecified weeks of gestation (principal); Z3A.00 Weeks of gestation of pregnancy not specified | CPT/HCPCS: 59025 ==

== ENCOUNTER 2024-03-04 00:05 | Inpatient (IN) | payer OTHER, SELFPAY ==
[2024-03-04] VITALS (216 sets, daily range): BP systolic 105–170; BP diastolic 52–135; PULSE 52–189; RESP 16–20; TEMP 36.1–36.7; O2SAT 82–100; BMI 43.4
--- NOTE | 2024-03-04 00:42 | LDADM ---
This patient, Tory Corrales, was admitted to Labor/Delivery/Recovery 104 on 03/04/24 at 00:05. Plans for labor, pain management and were discussed with patient. Patient/family oriented to hospital policies and general routines including ID bracelet, bed and alarms, visiting hours, pain management, procedures, bathroom and other care routines, personal items, smoking policy, room service/diet and guest tray routines, security routines, and visiting hours. Patient/Family are encouraged to report perceived risks to care and to ask questions if they do not understand what they are told or what they should do. See [facility]BI[facility] for further documentation.
[2024-03-04 00:58] LABS: Basophils Percent Auto 0.2 % (0.2-1.2); Eosinophils Absolute Auto 0.2 K/mm3 (0-0.3); Eosinophils Percent Auto 1.2 % (0-4.4); Hematocrit 29.5 % (37.0-47.0); Immature Granulocyte Absolute 0.14 K/mm3 (0.00-0.031); Immature Granulocyte Percent A 1.2 % (0-0.5); Lymphocytes Percent Auto 17.3 % (18.3-44.2); Mean Corpuscular HGB Conc 30.5 g/dl (32-36); Mean Corpuscular Hemoglobin 22.3 pg (26-34); Mean Platelet Volume 11.2 fl (7.4-10.4); Monocytes Absolute Auto 0.8 K/mm3 (0.1-0.6); Monocytes Percent Auto 6.8 % (2.6-8.5); Neutrophils Absolute Auto 8.9 K/mm3 (1.3-6.7); Neutrophils Percent Auto 73.3 % (45.5-73.1); Nucleated Red Blood Cells Perc 0.2 % (0.0-0.2); Platelet Count Result 247 k/mm3 (150-375); Red Blood Count 4.04 M/mm3 (4.2-5.4); Red Cell Distribution Width 16.3 % (11.5-14.5); White Blood Count 12.1 K/mm3 (4.5-10.0)
[2024-03-04 01:37] LABS: Hypochromasia 1+; Platelet Estimate Adequate (Adequate)
[2024-03-04 01:38] LABS: Ovalocytes 1+; Schistocytes None Seen
[2024-03-04] MEDS: LACTATED RINGERS 1,000 ML 125 ML IV CONT ×3 (02:51→15:11)
[2024-03-04] MEDS: OXYTOCIN 30 UNITS/NS 500 ML 30 UNITS/500 ML BAG IV CONT (02:52)
--- NOTE | 2024-03-04 06:43 | WPDANESEPP ---
Anes - Eval Pre Procedure Procedure: labor epidural Date/Time: 03/04/24 06:43 Preop Diagnosis: pain during labor Pre Op Diagnosis: IOL Patient Data Age: 23 Gender: F Height: 1.63 m Weight: 115 kg Last Vital Signs Temp 36.2 C L 03/04/24 06:16 Pulse 98 03/04/24 06:01 Resp 16 03/04/24 06:16 BP 112/94 H 03/04/24 06:01 Allergies Allergy/AdvReac Type Severity Reaction Status Date / Time hydroxyzine AdvReac Intermediate Anxiety Verified 02/18/24 14:29 methylphenidate AdvReac Unknown Other Verified 02/18/24 14:29 [From [employer]] Home Medications Medication Instructions Recorded Confirmed Type sertraline 50 mg tablet 100 mg PO DAILY 11/15/22 02/18/24 History prenat.vits,michael,zox-chrm-wqohf 1 tablet PO DAILY 02/08/23 02/18/24 History ferrous sulfate 325 mg (65 mg 325 mg PO DAILY 02/18/24 02/18/24 History iron) tablet Laboratory Tests 03/04/24 00:33 WBC 12.1 H K/mm3 (4.5-10.0) RBC 4.04 L M/mm3 (4.2-5.4) Hgb 9.0 L g/dL (12.0-15.0) Hct 29.5 L % (37.0-47.0) MCV 73.0 L fl (80-100) MCH 22.3 L pg (26-34) MCHC 30.5 L g/dl (32-36) RDW 16.3 H % (11.5-14.5) Plt Count 247 k/mm3 (150-375) MPV 11.2 H fl (7.4-10.4) Immature Gran % (Auto) 1.2 H % (0-0.5) Neut % (Auto) 73.3 H % (45.5-73.1) Lymph % (Auto) 17.3 L % (18.3-44.2) [place] % (Auto) 6.8 % (2.6-8.5) Eos % (Auto) 1.2 % (0-4.4) Baso % (Auto) 0.2 % (0.2-1.2) Lymph # (Auto) 2.10 K/mm3 (0.9-3.2) [place] # (Auto) 0.8 H K/mm3 (0.1-0.6) Eos # (Auto) 0.2 K/mm3 (0-0.3) Baso # (Auto) 0.0 K/mm3 (0.0-0.1) Abs Immat Gran (auto) 0.14 H K/mm3 (0.00-0.031) Absolute Neuts (auto) 8.9 H K/mm3 (1.3-6.7) Absolute Nucleated RBC 0.020 H K/mm3 (0.0-0.012) Nucleated RBC % 0.2 % (0.0-0.2) Platelet Estimate Adequate (Adequate) Hypochromasia 1+ Ovalocytes 1+ Schistocytes None seen RPR Pending Blood Type B Positive Antibody Screen Negative Patient hx anesthesia problems: none Family hx anesthesia problems: none Results Review: All pre-operative results and documents have been reviewed as part of the pre-operative evaluation. [facility] Past Medical History Medical History (Updated 03/04/24 @ 06:44 by Tonia Sheth CRNA) Anxiety Depression Healthy female adult IUP (intrauterine ), incidental Morbid obesity Surgical History Surgical History No history of previous surgery Family History Family History Mother Hypertension High cholesterol Social History Social History Smoking status: Former smoker Tobacco type: e-cigarettes/vaping Smoking end date: 02/16/20 Substance use: never Do You Feel Safe in your Home?: Yes Lack of Transportation: No Lack of Food: Never True Current Housing: I Have Housing Concerned About Future Housing: No Difficulty Paying Gas/Electric Bills: No Difficulty Paying for Meds: No Currently Unemployed: No Education: High School Diploma/GED Difficulty w/ Childcare or Family Care: No Spiritual care concerns: No Exam Day of Procedure 03/04/24 06:43
--- NOTE | 2024-03-04 12:30 | WPDOBADMIT ---
Obstetrics - Admit Note Admission Note: record reviewed. No pertinent additions to the history and/or any subsequent changes in the physical findings that are not consistent with the expected course of the were found. Additions to the history and/or subsequent changes in the physical findings follow. Admitted for IOL, SVE 3-01/19-/-2, AROM large amount of clear, odorless fluid, anticipate vaginal delivery
[2024-03-04 15:20] LABS: Rapid Plasma Reagin Non-Reactive (NonReactive)
--- NOTE | 2024-03-04 17:38 | P.PCNOB_ITS ---
OB - Vaginal Delivery Note Procedure Delivery date: 03/04/24 Induction method: AROM and Per Pitocin Protocol Delivery monitor: External FHT and Internal Uterine Route of delivery: Episiotomy description: None Laceration Description: Perineal - 2nd Degree Delivery repair: vicryl Specimen: No Quantitative Blood Loss (ml): 300 Anesthesia type: Epidural Disposition: Floor Narrative: head delivered to lips, manually retracted perineum under the chin, OA, no rotation of shoulders, unable to rotate internally due to position, reached for posterior arm and cord had prolapsed with head. posterior arm able to raised above chest and the rest of the baby delivered.cord avulsion, nursery nurse grabbed cord attached to baby and then clamped and handed to awaiting customs director, maternal side also clamped immediately. [place] Baby Date of : 03/04/24 Time of : 17:20 Weeks of gestation at delivery: 39 Infant gender: Male presentation: vertex position: Other Placenta delivery description: Spontaneous Cord Vessel Description: 3 Vessels
[2024-03-04] MEDS: OXYTOCIN 30 UNITS/NS 500 ML 30 UNITS/500 ML BAG 125 UNITS IV CONT (17:52)
[2024-03-04] MEDS: COSYNTROPIN 0.25 MG/ML VIAL 1 MG IV PUSH (18:19)
--- NOTE | 2024-03-04 19:33 | PC.NURSE ---
Patient transferred to post room #287 via ( W/C ). Support person present. Oriented to unit, room, information board, rooming in, admission packet and security measures. Patient verbalizes understanding.
[2024-03-05] MEDS: IBUPROFEN 600 MG TABLET PO (00:18)
[2024-03-05] MEDS: ACETAMINOPHEN 325 MG TABLET 650 MG PO ×2 (00:22→07:11)
[2024-03-05 00:30] VITALS: BP 118/71; PULSE 85; RESP 18; TEMP 36.9; O2SAT 97
[2024-03-05 06:04] LABS: Hematocrit 27.2 % (37.0-47.0)
[2024-03-05] MEDS: POLYSACCHARIDE IRON COMPLEX 150 MG CAPSULE PO ×2 (07:10→16:50)
[2024-03-05] MEDS: DOCUSATE SODIUM 100 MG CAPSULE PO ×2 (07:10→16:50)
[2024-03-05] MEDS: SERTRALINE HCL 50 MG TABLET 100 MG PO (07:11)
--- NOTE | 2024-03-05 07:35 | PM.OBPNVD ---
OB - PN: Subj Subjective Date/time seen: 03/05/24 07:35 Interval history: pp day 1 s/p vaginal delivery doing well baby doing well OB - PN: Obj Data Labs 03/05/24 05:25 Labs: Laboratory Results - last 24 hr 03/04/24 03/05/24 00:33 05:25 Hgb 8.0 L Hct 27.2 L RPR Non-reactive OB - PN A/P Plan day: 1 Plan: routine care Time Spent With Patient Time: Total time spent is greater than 50% in coordination of care (as documented) at patient's floor/unit and/or counseling patient: Review of Systems Review of Systems: All systems reviewed & are unremarkable except as noted in HPI and below Exam Const: General: cooperative, healthy appearing and comfortable Chest: Chest palpation & inspection: normal inspection of the chest Resp: Effort & Inspection: normal respiratory effort Auscultation: clear to auscultation bilaterally Cardio: Rate: regular rate Rhythm: regular rhythm GI: Other: soft Skin: General skin exam: normal color Neuro: General: patient oriented x3 Extrem: Right lower extremity: normal to inspection Left lower extremity: normal to inspection Psych: Appearance: grossly normal
[2024-03-05 08:00] VITALS: BP 128/71; PULSE 80; RESP 18; TEMP 36.2; O2SAT 99
[2024-03-05] MEDS: IRON SUCROSE COMPLEX 400 MG in SODIUM CHLORIDE 0.9% IV 250 ML 108 MG IVPB (09:14)
[2024-03-05] MEDS: ACETAMINOPHEN/BUTALBITAL/CAFFEINE 325-50-40 MG TABLET (FIORICET) PO ×2 (09:51→13:56)
--- NOTE | 2024-03-05 15:58 | WPDANLDPN2 ---
Anes-Prog Note L&D Date/Time: 03/05/24 15:58 Comfortable throughout: labor and delivery Neuraxial method: epidural Epidural/Spinal procedure site: clean & non-tender Neuro status: Neuro function grossly intact. Cardiovascular status: normal Respiratory status: normal Airway patency: baseline Mental status: baseline Post-Op hydration status: normal Vital Signs: Last Vital Signs Temp 36.2 C L 03/05/24 08:00 Pulse 80 03/05/24 08:00 Resp 18 03/05/24 08:00 BP 128/71 03/05/24 08:00 Pulse Ox 99 03/05/24 08:00 O2 Del Method Room Air 03/04/24 20:52 Pain score (VAS): 6/10 I/O: Intake & Output 03/04/24 03/05/24 03/05/24 23:59 07:59 15:59 Intake Total 500 Balance 500 Post-procedural complaints: other (pain 6/10 to back of neck/base of skull, worse with standing. Feels dizzy and lightheaded with standing. Eyes sensitive to light. Symptoms inproved with lying flat and lights dimmed.) Patient feedback: Patient satisfied with anesthetic care. Pt prefers conservative treatment of suspected PDPH as this time. Other findings: Discussed conservative treatment vs blood patch for suspected PDPH.
[2024-03-05 20:40] VITALS: BP 118/78; PULSE 86; RESP 18; TEMP 36.6; O2SAT 99
[2024-03-06] MEDS: ACETAMINOPHEN 325 MG TABLET 650 MG PO (07:51)
[2024-03-06] MEDS: DOCUSATE SODIUM 100 MG CAPSULE PO (07:52)
[2024-03-06] MEDS: POLYSACCHARIDE IRON COMPLEX 150 MG CAPSULE PO (07:52)
[2024-03-06] MEDS: SERTRALINE HCL 50 MG TABLET 100 MG PO (07:55)
--- NOTE | 2024-03-06 08:06 | PM.OBPNVD ---
OB - PN: Subj Subjective Date/time seen: 03/06/24 08:06 Interval history: pp day 2 s/p vaginal delivery doing well baby doing well OB - PN: Obj Data Labs 03/05/24 05:25 OB - PN A/P Plan day: 2 Plan: routine care and discharge home Time Spent With Patient Time: Total time spent is greater than 50% in coordination of care (as documented) at patient's floor/unit and/or counseling patient: Review of Systems Review of Systems: All systems reviewed & are unremarkable except as noted in HPI and below Exam Const: General: cooperative, healthy appearing and comfortable Chest: Chest palpation & inspection: normal inspection of the chest Resp: Effort & Inspection: normal respiratory effort Cardio: Rate: regular rate Rhythm: regular rhythm Skin: General skin exam: normal color Neuro: General: patient oriented x3
--- NOTE | 2024-03-06 08:08 | P.DS_ITS ---
DS: Admitting Diagnosis Discharge Date 03/06/24 Admitting Diagnosis IOL DS: Discharge Diagnosis Discharge Diagnosis (1) Vaginal delivery: Code(s): O80 - Encounter for full-term uncomplicated delivery Status: Acute OB - DS: Summary OB Procedures : None OB Procedures Intrapartum: Spontaneous Vag Delivery OB Procedures: : None Peripartum Data Laceration Description: Perineal - 2nd Degree Episiotomy description: None Time Spent with Patient Time attestation: Total time spent providing and/or coordinating discharge services: Discharge Plan Discharge Attending physician on discharge: Sam Hurley Discharging Clinician: Maru Michel Patient Disposition: Home, Self-Care Activity: pelvic rest Diet: regular Patient Instructions: Antibiotic Form Stand Alone Forms: General Discharge Information Follow-up/Referrals: Maru Michel CNM [Certified Nurse Sales Support Technician] - 1 Week Discharge Medications: New ibuprofen 600 mg Tablet 600 mg PO Q6H PRN (Reason: Cramping) Qty: 30 0RF Continued sertraline 50 mg tablet 100 mg PO DAILY prenat.vits,michael,qnt-ugsb-jhdfe Tablet 1 tablet PO DAILY ferrous sulfate 325 mg (65 mg iron) Tablet 325 mg PO DAILY Date of admission: 03/04/24 00:05 Primary Care Provider: Theodore,Debbie Bucio Admitting Provider: Sam Hurley Attending physician on admission: Sam Hurley Condition: Stable
[2024-03-06 09:20] VITALS: BP 129/71; PULSE 92; RESP 16; TEMP 36.2; O2SAT 99
[2024-03-07 11:18] VITALS: BP 130/77; PULSE 102; RESP 18; TEMP 36.8; O2SAT 99
== END 2024-03-06 10:43 | disposition home or self-care (01) | DRG 560 ==
LOC: ANHLDR 00:09 → ANHOB2 19:38
PROVIDERS: Admitting Provider Obstetrics & Gynecology; PCP Nurse Practitioner Family; Referring Provider Advanced Practice Midwife; Visit Provider Obstetrics & Gynecology
DX: O70.1 Second degree perineal laceration during delivery (principal); Z37.0 Single live birth; Z3A.39 39 weeks gestation of pregnancy
CPT/HCPCS: 36415; 85014; 85018; 85025; 86592; 86850; 86900; 86901; A9270; J0834; J1756; J2590; J2795; J7050; J7120